=== PATIENT | female | born 1955 | race African-American/Black ===

== ENCOUNTER 2019-08-08 05:33 | Inpatient (IN) | payer OTHER ==
[2019-08-08 05:56] VITALS: BMI 36.5
--- NOTE | 2019-08-08 07:15 | PDOC ---
History of Present Illness - General Chief Complaint: Chest Pain Stated Complaint: CHEST PAIN Time Seen by Provider: 08/08/19 07:15 History Source: Patient Exam Limitations: No Limitations - History of Present Illness Initial Comments: 63-year-old female with past medical history of hypertension, hyperlipidemia, CAD s/p 2 stents (2014), CVA (05/2019), COPD, asthma, nicotine use, ESRD on HD ( //), CHF, diabetes presented to the emergency department for chest tightness for two days. She reported that her chest tightness is constant, associated with an increase in sputum, and a color change from clear to yellow or green. She reported a subjective fever a couple of days ago. She also complains of six days of loose watery diarrhea, and nausea and vomiting associated with generalized abdominal pain, worse in the LLQ. She reported she last vomited this morning. She reported she has not missed any dialysis prior to today, or any of her prescribed medications. She reported her dialysis appointment was for this morning at 5 AM, and she missed it because she was in the emergency department. She reported her weight has been a little bit lower than normal when she weighs herself everyday. Pt recently finished a course of Doxycyline. ROS General: denied fever, chills, generalized weakness. HEENT: denied sore throat, rhinorrhea, ear pain. Cardiovascular: denied chest pain, palpitations, syncope, diaphoresis. Respiratory: admitted to shortness of breath, cough, sputum production. denied hemoptysis. Gastrointestinal: admitted to abdominal pain, nausea, vomiting, diarrhea. denied constipation, blood in stool. Genitourinary: denied dysuria, increased urinary frequency, hematuria, urinary incontinence, flank pain. Back: denied back pain. Musculoskeletal: denied joint pain, muscle pain, joint swelling. Neurological: denied headache, dizziness, numbness, tingling, weakness. Integumentary: denied rash, laceration, abrasion. Hematologic/Lymphatic: denied bruising or bleeding. PE Constitutional: Well-nourished, Well-developed, appearing stated age. Obese. HEENT: head is normocephalic, atraumatic. EOMI. PERRLA. Neck: supple. Full ROM. Cardiovascular: regular heart rhythm. no murmurs. Respiratory: rhonchi bilaterally. crackles bilaterally. no stridor. speaking full sentences. tachypnea. Gastrointestinal: soft, flat. tenderness to LLQ and RUQ. normal bowel sounds. no rebound, guarding, masses. Extremities: peripheral pulses intact. 3+ pitting edema bilateral lower extremities. Neurological: CN 2-12 grossly intact. moves all four extremities. Psych: awake, alert, oriented x3. follows commands. answers questions appropriately. Past History - Past Medical History Allergies/Adverse Reactions: Allergies Allergy/AdvReac Type Severity Reaction Status Date / Time Penicillins Allergy Intermediate Hives Verified 08/08/19 06:01 Home Medications: Ambulatory Orders Albuterol Sulfate [Proair Respiclick] 2 puff IH QID PRN 08/08/19 Aspirin [Aspirin EC] 81 mg PO DAILY 08/08/19 Atorvastatin Ca [Lipitor] 80 mg PO HS 08/08/19 Budesonide/Formeterol Fumarate [SYMBICORT 80/4.5mcg -] 2 inh PO BID 08/08/19 Calcium Carbonate/Vitamin D3 [Calcium 600-D3 20Mcg(800 Unit)] 1 each PO DAILY Clopidogrel Bisulfate [Plavix -] 75 mg PO DAILY 08/08/19 Clotrimazole 30 ml TP DAILY 08/08/19 Cyanocobalamin [Vitamin B12 -] 100 mcg PO DAILY 08/08/19 Fluticasone Furoate [Children's Flonase Sensimist] 5.9 ml NS BID 08/08/19 Folic Acid 1 mg PO DAILY 08/08/19 Gabapentin 100 mg PO BID 08/08/19 Ipratropium/Albuterol Sulfate [Combivent Respimat Inhal [place]] 4 gm IH BID 08/08 Isosorbide Dinitrate [Isordil] 20 mg PO TID 08/08/19 Lisinopril 10 mg PO DAILY 08/08/19 Metoprolol Succinate 12.5 mg PO DAILY 08/08/19 Montelukast Sodium [Singulair] 10 mg PO DAILY 08/08/19 Mupirocin 1 gm TP BID 08/08/19 Nitroglycerin 0.4 mg SL DAILY 08/08/19 Sennosides [Senna] 17.2 mg PO HS 08/08/19 Sevelamer HCl 800 mg PO TID 08/08/19 - Immunization History Td Vaccination: Yes TDAP Vaccination: Yes Immunization Up to Date: Yes - Psycho Social/Smoking Cessation Hx Smoking History: Never smoked Have you smoked in the past 12 months: No Information on smoking cessation initiated: No Hx Alcohol Use: No Drug/Substance Use Hx: No *Physical Exam - Vital Signs Last Vital Signs Temp Pulse Resp BP Pulse Ox 99.2 F 120 H 20 112/79 100 08/08/19 05:44 08/08/19 06:31 08/08/19 06:31 08/08/19 06:31 08/08/19 06:31 Procedures - Central Line Central Line Lumen: triple Central Line Position: femoral (L) Anesthesia: 1% Lidocaine Amount of anesthesia (ccs): 5 Complications: none Post Central Line Insertion: sutured, good blood return Progress: Verbal consent was obtained, it was an emergent line and written consent was not obtained. It was in the best interest of the patient to have to procedure done as soon as possible. The Right IJ was attempted first, resistance was felt , likely from scarring from past procedures. We then decided the best access for her would be femoral and the Left Femoral was placed. - Bedside Ultrasound Bedside Ultrasound: Cardiac Remarks: Bedside POCUS cardiac US showed no pericardial effusion, globally decreased squeeze, no RV dilation, no septal bowing. Bedside POCUS IVC US showed plethoric IVC. Bedside POCUS RUQ showed thickened GB wall, with pericholecystic fluid, with GB stones. ---POCUS US Imaging was performed by me and Dr. Varghese, US Fellowship Trained EM Attending. ED Treatment Course - LABORATORY CBC & Chemistry Diagram: 08/08/19 06:40 08/08/19 06:40 Medical Decision Making - Medical Decision Making 63 year old female with above PMH presented to ED for chest tightness/ productive cough x2 days, as well as LLQ pain, N/V/D x6 days with recent antibiotic use. Initial Vital Signs Temp Pulse Resp BP Pulse Ox 99.2 F 75 20 92/56 L 100 08/08/19 05:44 08/08/19 05:44 08/08/19 05:44 08/08/19 05:44 08/08/19 05:44 ED Medications Discontinued Medications Generic Name Dose Route Start Last Admin Trade Name Freq PRN Reason Stop Dose Admin Al Hydroxide/Mg Hydroxide 30 ml 08/08/19 07:22 08/08/19 07:55 Mylanta Oral Suspension - PO 08/08/19 07:23 30 ml ONCE ONE Administration Albuterol/Ipratropium 3 amp 08/08/19 07:22 08/08/19 07:55 Duoneb - NEB 08/08/19 07:23 3 amp ONCE ONE Administration Famotidine/Sodium Chloride 20 mg in 50 mls @ 100 mls/hr 08/08/19 07:22 08:00 Pepcid 20 Mg Premixed Ivpb - IVPB 08/08/19 07:51 100 mls/hr ONCE ONE Administration Pt refused Zofran. CXR report: Name: [facility] DEPARTMENT OF RADIOLOGY Phys: Victoria Muro RESIDENT : 1955 Age: 63 Sex: F [facility] Acct: [id number] Loc: [facility] [address] [facility] Exam Date: 08/08/19 Status: [facility] [place] [id number] Unit Number: [id number] EXAM#: TYPE/EXAM: RESULT: [id number] RAD/CHEST X-RAY PORTABLE* Chest: Chest pain A single AP view of the chest reveals a large heart with fullness of the mara and congestive changes. There is no sign of an infiltrate. The angles are sharp. The soft tissues are prominent. There are some degenerative changes. Correlation recommended. Reported By: Doug Ruvalcaba MD 08/08/19 0658 Labs ordered: CBC, CMP, Mg, Phos, BNP, troponin, stool studies, blood cultures Imaging ordered: CT abdomen/pelvis EKG performed at 0741: rate 78, regular rhythm, left axis, normal intervals, QTc 465, no acute ST changes, 3 PVCs. 08/08/19 09:21 Laboratory Last Values WBC 10.0 K/mm3 (4.0-10.0) 08/08/19 06:40 RBC 3.80 M/mm3 (3.60-5.2) 08/08/19 06:40 Hgb 11.7 GM/dL (10.7-15.3) 08/08/19 06:40 Hct 37.1 % (32.4-45.2) 08/08/19 06:40 MCV 97.6 fl (80-96) H 08/08/19 06:40 MCH 30.7 pg (25.7-33.7) 08/08/19 06:40 MCHC 31.5 g/dl (32.0-36.0) L 08/08/19 06:40 RDW 15.9 % (11.6-15.6) H 08/08/19 06:40 MPV 9.3 fl (7.5-11.1) 08/08/19 06:40 Absolute Neuts (auto) 6.1 K/mm3 (1.5-8.0) 08/08/19 06:40 Neutrophils % 61.2 % (42.8-82.8) 08/08/19 06:40 Lymphocytes % 9.5 % (8-40) 08/08/19 06:40 Monocytes % 13.2 % (3.8-10.2) H 08/08/19 06:40 Eosinophils % 15.7 % (0-4.5) H 08/08/19 06:40 Basophils % 0.4 % (0-2.0) 08/08/19 06:40 Nucleated RBC % 0 % (0-0) 08/08/19 06:40 PT with INR 13.70 SEC (9.7-13.0) H 08/08/19 06:40 INR 1.16 (0.83-1.09) H 08/08/19 06:40 PTT (Actin FS) 35.9 SECONDS (25.2-36.5) 08/08/19 06:40 Sodium 139 mmol/L (136-145) 08/08/19 06:40 Potassium 4.1 mmol/L (3.5-5.1) 08/08/19 06:40 Chloride 101 mmol/L (98-107) 08/08/19 06:40 Carbon Dioxide 29 mmol/L (21-32) 08/08/19 06:40 Anion Gap 9 MMOL/L (8-16) 08/08/19 06:40 BUN 27.9 mg/dL (7-18) H 08/08/19 06:40 Creatinine 7.0 mg/dL (0.55-1.3) H 08/08/19 06:40 Est GFR (CKD-EPI)AfAm 6.70 08/08/19 06:40 Est GFR (CKD-EPI)NonAf 5.78 08/08/19 06:40 Random Glucose 109 mg/dL (74-106) H 08/08/19 06:40 Lactic Acid 2.4 mmol/L (0.4-2.0) H* 08/08/19 07:55 Calcium 8.3 mg/dL (8.5-10.1) L 08/08/19 06:40 Phosphorus 5.2 mg/dL (2.5-4.9) H 08/08/19 07:55 Magnesium 2.2 mg/dL (1.8-2.4) 08/08/19 07:55 Total Bilirubin 0.6 mg/dL (0.2-1) 08/08/19 06:40 AST 30 U/L (15-37) 08/08/19 06:40 ALT 14 U/L (13-61) 08/08/19 06:40 Alkaline Phosphatase 207 U/L (45-117) H 08/08/19 06:40 Troponin I < 0.02 ng/ml (0.00-0.05) 08/08/19 06:40 B-Natriuretic Peptide 75000.5 pg/ml (5-125) H 08/08/19 07:55 Total Protein 7.2 g/dl (6.4-8.2) 08/08/19 06:40 Albumin 2.9 g/dl (3.4-5.0) L 08/08/19 06:40 Pt is fluid overloaded. Needs dialysis today. Dr. Galvan paged. 08/08/19 11:06 Pt became hypotensive, required central line placement. See procedure note. A right IJ was attempted, but resistance was felt. The central line was placed in the left femoral vein under US guidance. ICU consulted. Dr. Galvan will arrange dialysis. Bedside POCUS RUQ showed thickened GB wall, with pericholecystic fluid, with GB stones. Clinically concerning for Cholecystitis. Medications ordered: Cipro and Flagyl, Levophed 08/08/19 11:33 Signout given to admitting team, pt to be under Dr. Ochoa's care. Pt to be transported to ICU. 08/08/19 11:56 Pt left ED to go to CT for Abdomen/Pelvis without contrast, the to be taken straight to ICU. 08/08/19 12:[address] Weir, who will consult. Discharge - Discharge Information Problems reviewed: Yes Clinical Impression/Diagnosis: Fluid overload, Cholecystitis, Hypotension Condition: Guarded - Admission Yes - Follow up/Referral - Patient Discharge Instructions - Post Discharge Activity
[2019-08-08] MEDS ORDERED: MAG HYDROX/AL HYDROX/SIMETH 30 ML UNIT-DOSE CUP PO ONE (07:22)
[2019-08-08] MEDS ORDERED: ONDANSETRON 4 MG/2 ML VIAL IVPUSH ONE (07:22)
[2019-08-08] MEDS ORDERED: FAMOTIDINE 20 MG/50 ML IVPB 20 MG/50 ML MG IVPB ONE ×2 (07:22→07:59)
[2019-08-08] MEDS ORDERED: ALBUTEROL SO4 2.5/IPRATROPIUM 0.5 INH SOL 3 ML VIAL.NEB. NEB ONE ×4 (07:22→09:19)
[2019-08-08] MEDS ORDERED: MAG HYDROX/AL HYDROX/SIMETH 30 ML UNIT-DOSE CUP ONE (07:58)
[2019-08-08 08:08] LABS: BASO % 0.4 % (0-2.0); EOS % 15.7 % (0-4.5); HEMATOCRIT 37.1 % (32.4-45.2); HEMOGLOBIN 11.7 GM/dL (10.7-15.3); LYMPH % 9.5 % (8-40); MCH 30.7 pg (25.7-33.7); MCHC 31.5 g/dl (32.0-36.0); MEAN CELL VOLUME 97.6 fl (80-96); MEAN PLT VOLUME 9.3 fl (7.5-11.1); MONO % 13.2 % (3.8-10.2); NEUT % 61.2 % (42.8-82.8); RDW 15.9 % (11.6-15.6)
[2019-08-08 08:32] LABS: INR 1.16 (0.83-1.09); PROTHROMBIN TIME (PATIENT) 13.7 SEC (9.7-13.0)
[2019-08-08 08:36] LABS: ACTIVATED PTT 35.9 SECONDS (25.2-36.5)
[2019-08-08 08:38] LABS: ALBUMIN 2.9 g/dl (3.4-5.0); ALK PHOS 207 U/L (45-117); ANION GAP 9 MMOL/L (8-16); BILIRUBIN,TOTAL 0.6 mg/dL (0.2-1); BLOOD UREA NITROGEN 27.9 mg/dL (7-18); CALCIUM 8.3 mg/dL (8.5-10.1); CHLORIDE 101 mmol/L (98-107); CO2 29 mmol/L (21-32); GLUCOSE,RANDOM 109 mg/dL (74-106); POTASSIUM 4.1 mmol/L (3.5-5.1); SGOT/AST 30 U/L (15-37); SGPT/ALT 14 U/L (13-61); SODIUM 139 mmol/L (136-145); TOT PROT 7.2 g/dl (6.4-8.2)
--- NOTE | 2019-08-08 08:41 | PDOC ---
Attending Attestation - Resident Resident Name: Precious Vagrhese - ED Attending Attestation I have performed the following: I have examined & evaluated the patient, The case was reviewed & discussed with the resident, I agree w/resident's findings & plan, Exceptions are as noted - HPI HPI: 08/08/19 08:51 42-bewf-wvu-year-old female history of end-stage renal disease dialysis Saturday, hypertension, diabetes, COPD here today complaining of cough and not feeling well. pt has been feeling sob, and c/o chest pain. call EMS today, felt too unwell to go to dialysis. on EMS arrival, pt was given 4 asa 82mg. stats she has had a cough. also c/o subjective fever and chills. no leg swelling. laboratory geneticist is Dr Ordoñez - Physicial Exam PE: 08/08/19 09:18 on exam pt awake alert lungs with diffuse crackles, rhonchorous breath sounds, occasional wheeze. normal effort. heart rrr no mrg abd soft mild llq ttp. ruq ttp. positive herman's signs. noted suprpubic c section scar. no palp hernia. no rebound no guarding. skin warm and dry. neuro alert oriented x 3. 08/08/19 12:16 - Medical Decision Making 08/08/19 09:19 63 yo F with esrd, ht dm copd dialysis here with c/o chest pain diarrhea, and cough. congestive lung exam plan duoneb, tylenol, will require dialysis this am. pt recently on abx, doxy, and now c/o loose watery stool. concerns for colitis, c diff. ct a/p ordered and pending. will call oncall nephrology to arrange for dialysis. 08/08/19 12:17 pt with worsening BP in ED. unable to give fluid resuscitation due to dialysis, poor contractility, and plethoric IVC. pt needs ionotropic support. focused ED us performed moderately decreased contractility, no pericardial effusion, plethoric IVC central line placed left femoral region, ( unable to thread wire Right IJ location due to presumed stenosis) levophed ordered and started. right upper quadrant ultrasond, pt with stones, wall thickening edema. positive sonographic herman's mildly dilated CBD for patients age. impression: cholecysitits. dr vigil consulted. pt upgraded to ICU for sepsis, cholecysitis, pulm congestion needs dialysis. ICU agreed. ct a/p evaluated to evaluate for colitis, en route to CT. pt pcn allergic, was ordered for cipro and flagyl. Critical Care Total Critical Care Time (in minutes): 60 Critical Care Statement: The care of this patient involved high complexity decision making to prevent further life threatening deterioration of the patient 's condition and/or to evaluate & treat vital organ system(s) failure or risk of failure. central line placed. treated abx for cholecysitis, transfereed to ICU. nephrology and surgery consulted.
[2019-08-08] MEDS ORDERED: ACETAMINOPHEN 1000 MG/100 ML VIAL (NON FORMULARY) IVPB ONE (08:54)
[2019-08-08 09:13] LABS: MAGNESIUM 2.2 mg/dL (1.8-2.4); N-TERMINAL BNP 29771.5 pg/ml (5-125); PHOSPHOROUS 5.2 mg/dL (2.5-4.9)
[2019-08-08] MEDS ORDERED: ACETAMINOPHEN INJECTION 100 ML IVPB ONE (09:18)
--- NOTE | 2019-08-08 10:16 | EKG ---
Test Reason : Blood Pressure : / mmHG Vent. Rate : 077 BPM Atrial Rate : 077 BPM P-R Int : 172 ms QRS Dur : 098 ms QT Int : 400 ms P-R-T Axes : 000 -21 104 degrees QTc Int : 452 ms SINUS RHYTHM WITH SINUS ARRHYTHMIA WITH FREQUENT PREMATURE VENTRICULAR COMPLEXES LOW VOLTAGE QRS SEPTAL INFARCT (CITED ON OR BEFORE 27-OCT-2008) ABNORMAL ECG WHEN COMPARED WITH ECG OF 29-OCT-2008 11:14, PREMATURE VENTRICULAR COMPLEXES ARE NOW PRESENT T WAVE INVERSION MORE EVIDENT IN LATERAL LEADS Confirmed by RENATA SALAS MD ([id number]) on 08/08/2019 10:16:28 AM Referred By: Confirmed By:RENATA SALAS MD
[2019-08-08] MEDS ORDERED: SODIUM CHLORIDE 250 ML IV PRN (10:22)
[2019-08-08] MEDS ORDERED: CIPROFLOXACIN 400 MG/D5W 400 MG/200 ML IVPB IVPB ONE (11:01)
[2019-08-08 11:22] LABS: LIPASE 249 U/L (73-393)
[2019-08-08] MEDS: NOREPINEPHRINE BITARTRATE 8,000 MCG in DEXTROSE 5%-WATER - 492 ML IV SCH (11:45)
[2019-08-08 11:56] LABS: PLATELET COUNT 190 K/MM3 (134-434)
[2019-08-08 11:58] LABS: VENOUS PC02 54.5 mmHg (38-52); VENOUS PH 7.33 (7.31-7.41); VENOUS PO2 < 49 mmHg (28-48)
--- NOTE | 2019-08-08 12:05 | HP ---
CHIEF COMPLAINT: chest pain, abdominal pain, diarrhea x 6 days PCP: HISTORY OF PRESENT ILLNESS: Pt is a 63 year old F with PMHx of HTN, HLD, CAD s/ p 2 stents (2014), CVA (05/2019), COPD, asthma, nicotine use, ESRD on HD (// ), CHF, DM (diet controlled) presenting for chest pain, abdominal pain and diarrhea. Pt reported having up to 5 daily episodes of loose stool with abdominal pain. Yesterday she vomited nbnb vomit with associated fever. Pt barely makes urine has been on dialysis since 2014. Pt does not use oxygen at home. Pt reports getting care from [facility] including dialysis TTHS, last dialysis sesion on . Pt however has been to both [facility] and [facility] Ed over the past week for the current complaint. She said she got chest Xrays done and received her usual medications. Pt reports ambulating without assistance, with dyspnea on exertion. Per chart she was on doxycycline recently. ED d/w with Dr Galvan about her overload, will see her for possible dialysis. Pt reports R sided pain, from prior rib fractures (identified in hospital during her diagnosis of stroke). While in the ED, pt became hypotensive to 74/47, necessitating a central line to start pressors. RIJ was attempted but L femoral line is now in place. 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, lives alone Smokin cigs per day has been smoking for 20 years Alcohol:Denies Drugs: Denies Allergies Penicillins Allergy (Intermediate, Verified 08/08/19 06:01) Hives HOME MEDICATIONS: Home Medications Medication Instructions Recorded Albuterol Sulfate [Proair 2 puff IH QID PRN 08/08/19 Respiclick] Aspirin [Aspirin EC] 81 mg PO DAILY 08/08/19 Atorvastatin Ca [Lipitor] 80 mg PO HS 08/08/19 Budesonide/Formeterol Fumarate 2 inh PO BID 08/08/19 [SYMBICORT 80/4.5mcg -] Calcium Carbonate/Vitamin D3 1 each PO DAILY 08/08/19 [Calcium 600-D3 20Mcg(800 Unit)] Clopidogrel Bisulfate [Plavix -] 75 mg PO DAILY 08/08/19 Clotrimazole 30 ml TP DAILY 08/08/19 Cyanocobalamin [Vitamin B12 -] 100 mcg PO DAILY 08/08/19 Fluticasone Furoate [Children's 5.9 ml NS BID 08/08/19 Flonase Sensimist] Folic Acid 1 mg PO DAILY 08/08/19 Gabapentin 100 mg PO BID 08/08/19 Ipratropium/Albuterol Sulfate 4 gm IH BID 08/08/19 [Combivent Respimat Inhal [place]] Isosorbide Dinitrate [Isordil] 20 mg PO TID 08/08/19 Lisinopril 10 mg PO DAILY 08/08/19 Metoprolol Succinate 12.5 mg PO DAILY 08/08/19 Montelukast Sodium [Singulair] 10 mg PO DAILY 08/08/19 Mupirocin 1 gm TP BID 08/08/19 Nitroglycerin 0.4 mg SL DAILY 08/08/19 Sennosides [Senna] 17.2 mg PO HS 08/08/19 Sevelamer HCl 800 mg PO TID 08/08/19 REVIEW OF SYSTEMS Except as in HPI PHYSICAL EXAMINATION Vital Signs - 24 hr 08/08/19 08/08/19 08/08/19 05:44 06:31 07:15 Temperature 99.2 F Pulse Rate 75 100 H Pulse Rate [ 120 H Apical] Respiratory 20 20 Rate Blood Pressure 92/56 L Blood Pressure 112/79 [Right Arm] O2 Sat by Pulse 100 100 91 L Oximetry (%) 08/08/19 08/08/19 08/08/19 07:21 09:10 09:13 Temperature 99.0 F 99.0 F Pulse Rate 84 Pulse Rate [ 96 H Apical] Respiratory 30 H Rate Blood Pressure Blood Pressure 97/59 L [Right Arm] O2 Sat by Pulse 99 100 Oximetry (%) 08/08/19 08/08/19 11:40 11:45 Temperature Pulse Rate 86 Pulse Rate [ 80 86 Apical] Respiratory 22 H 24 H Rate Blood Pressure 79/47 L Blood Pressure 79/47 L 95/63 [Right Arm] O2 Sat by Pulse 100 100 Oximetry (%) GENERAL: Initially somnolent but arousable, later awake, alert, and fully oriented, in no acute distress. Obese EYES: Pupils equal, round and reactive to light, extraocular movements intact, sclera anicteric, conjunctiva clear. No lid lag. EARS, NOSE, THROAT: Dry mucus membranes, edentulous. NECK: R bandage over neck LUNGS: Rhonchi, basal crackles b/l HEART: S1 and S2 without murmur, rub or gallop. ABDOMEN: Obese, generalized tenderness, Soft, MUSCULOSKELETAL: Tommy to move all extremities UPPER EXTREMITIES: healed rashes on hands b/l LOWER EXTREMITIES: b/l peripheral edema, no pitting with thickened dark skin. NEUROLOGICAL: Cranial nerves II-XII intact. Edentulous speech difficult to comprehend. Gait not observed CBC, BMP 08/08/19 14:50 08/08/19 14:50 . Laboratory Results - last 24 hr 08/08/19 08/08/19 08/08/19 06:40 06:40 06:40 WBC 10.0 RBC 3.80 Hgb 11.7 Hct 37.1 MCV 97.6 H MCH 30.7 MCHC 31.5 L RDW 15.9 H Plt Count 190 MPV 9.3 Absolute Neuts (auto) 6.1 Total Counted 100 Neutrophils % 61.2 Neutrophils % (Manual) 53.0 Band Neutrophils % 2.0 Lymphocytes % 9.5 Lymphocytes % (Manual) 16.0 Monocytes % 13.2 H Monocytes % (Manual) 16 H Eosinophils % 15.7 H Eosinophils % (Manual) 13.0 H Basophils % 0.4 Nucleated RBC % 0 Platelet Comment No clumping noted PT with INR 13.70 H INR 1.16 H PTT (Actin FS) 35.9 Anticoagulation Therapy Puncture Site Patient Temperature ABG pH ABG pCO2 at Pt Temp ABG pO2 at Pt Temp ABG HCO3 ABG O2 Sat (Measured) ABG O2 Content ABG Base Excess Thiago Test VBG pH POC VBG pCO2 POC VBG pO2 VBG HCO3 VBG O2 Sat (Narciso) VBG Base Excess Carboxyhemoglobin Methemoglobin O2 Delivery Device Oxygen Flow Rate Vent Mode Vent Rate Mechanical Rate PEEP Pressure Support Vent Sodium 139 Potassium 4.1 Chloride 101 Carbon Dioxide 29 Anion Gap 9 BUN 27.9 H Creatinine 7.0 H Est GFR (CKD-EPI)AfAm 6.70 Est GFR (CKD-EPI)NonAf 5.78 Random Glucose 109 H Lactic Acid Calcium 8.3 L Phosphorus Magnesium Total Bilirubin 0.6 AST 30 ALT 14 Alkaline Phosphatase 207 H Troponin I < 0.02 B-Natriuretic Peptide Total Protein 7.2 Albumin 2.9 L Lipase 249 08/08/19 08/08/19 08/08/19 07:55 07:55 10:45 WBC RBC Hgb Hct MCV MCH MCHC RDW Plt Count MPV Absolute Neuts (auto) Total Counted Neutrophils % Neutrophils % (Manual) Band Neutrophils % Lymphocytes % Lymphocytes % (Manual) Monocytes % Monocytes % (Manual) Eosinophils % Eosinophils % (Manual) Basophils % Nucleated RBC % Platelet Comment PT with INR INR PTT (Actin FS) Anticoagulation Therapy Cancelled Puncture Site Cancelled Patient Temperature Cancelled ABG pH Cancelled ABG pCO2 at Pt Temp Cancelled ABG pO2 at Pt Temp Cancelled ABG HCO3 Cancelled ABG O2 Sat (Measured) Cancelled ABG O2 Content Cancelled ABG Base Excess Cancelled Thiago Test Cancelled VBG pH POC VBG pCO2 POC VBG pO2 VBG HCO3 VBG O2 Sat (Narciso) VBG Base Excess Carboxyhemoglobin Cancelled Methemoglobin Cancelled O2 Delivery Device Cancelled Oxygen Flow Rate Cancelled Vent Mode Cancelled Vent Rate Cancelled Mechanical Rate Cancelled PEEP Cancelled Pressure Support Vent Cancelled Sodium Potassium Chloride Carbon Dioxide Anion Gap BUN Creatinine Est GFR (CKD-EPI)AfAm Est GFR (CKD-EPI)NonAf Random Glucose Lactic Acid 2.4 H* Calcium Phosphorus 5.2 H Magnesium 2.2 Total Bilirubin AST ALT Alkaline Phosphatase Troponin I B-Natriuretic Peptide 95166.5 H Total Protein Albumin Lipase Laboratory Tests 08/08/19 11:25 VBG pH 7.33 POC VBG pCO2 54.5 H POC VBG pO2 < 49 H VBG HCO3 28.1 VBG O2 Sat (Narciso) 73.6 VBG Base Excess 2.7 H Current Medications Albuterol/Ipratropium (Duoneb -) 1 amp NEB RTID [facility] Aspirin (Ecotrin -) 81 mg PO DAILY [facility] Budesonide/Formoterol Fumarate (Symbicort 80/4.5mcg -) 2 puff IH BID [facility] Clopidogrel Bisulfate (Plavix -) 75 mg PO DAILY [facility] Heparin Sodium (Porcine) (Heparin -) 5,000 unit SQ TID [facility] Norepinephrine Bitartrate 8, (000 mcg/ Dextrose) 500 mls @ 18.75 mls/hr IV TITR [facility]; Protocol Last Admin: 08/08/19 11:45 Dose: 5 mcg/min, 18.75 mls/hr Sodium Chloride (Normal Saline -) 250 mls @ 3,000 mls/hr IV PRN PRN PRN Reason: Hypotension during Dialysis Stop: 08/09/19 10:22 Montelukast Sodium (Singulair -) 10 mg PO HS [facility] Nystatin (Mycostatin Cream -) 1 applic TP BID [facility] Vancomycin HCl (Vancomycin Oral Solution) 250 mg PO Q6HPO [facility] Last Admin: 08/08/19 18:20 Dose: 250 mg Ambulatory Orders Albuterol Sulfate [Proair Respiclick] 2 puff IH QID PRN 08/08/19 Aspirin [Aspirin EC] 81 mg PO DAILY 08/08/19 Atorvastatin Ca [Lipitor] 80 mg PO HS 08/08/19 Budesonide/Formeterol Fumarate [SYMBICORT 80/4.5mcg -] 2 inh PO BID 08/08/19 Calcium Carbonate/Vitamin D3 [Calcium 600-D3 20Mcg(800 Unit)] 1 each PO DAILY Clopidogrel Bisulfate [Plavix -] 75 mg PO DAILY 08/08/19 Clotrimazole 30 ml TP DAILY 08/08/19 Cyanocobalamin [Vitamin B12 -] 100 mcg PO DAILY 08/08/19 Fluticasone Furoate [Children's Flonase Sensimist] 5.9 ml NS BID 08/08/19 Folic Acid 1 mg PO DAILY 08/08/19 Gabapentin 100 mg PO BID 08/08/19 Ipratropium/Albuterol Sulfate [Combivent Respimat Inhal [place]] 4 gm IH BID 08/08 Isosorbide Dinitrate [Isordil] 20 mg PO TID 08/08/19 Lisinopril 10 mg PO DAILY 08/08/19 Metoprolol Succinate 12.5 mg PO DAILY 08/08/19 Montelukast Sodium [Singulair] 10 mg PO DAILY 08/08/19 Mupirocin 1 gm TP BID 08/08/19 Nitroglycerin 0.4 mg SL DAILY 08/08/19 Sennosides [Senna] 17.2 mg PO HS 08/08/19 Sevelamer HCl 800 mg PO TID 08/08/19 ASSESSMENT/PLAN: Pt is a 63 year old F with PMHx of HTN, HLD, CAD s/p 2 stents (2014), CVA (2018), COPD, asthma, nicotine use, ESRD on HD (), CHF, DM (diet controlled ) presenting for chest pain, abdominal pain and diarrhea. #Acute Pulmonary edema In setting of ESRD with missed dialysis, and possible CHF BNP elevated to 20,000s Pt for dialysis today, Dr Galvan on board Cont supplemental o2 #Acute hypercapnic respiratory failure abg pending Pt reports not being on home O2 Cont supplemental O2 as needed #Septic shock likely secondary to cdiff LA, hypotension on vasopressors Trend lactic acid klevel Received cipro/flagyl inED Pt allergic to pen (hives)- 1g aztreonam stat Will consider contact isolation Stool for Cdiff, o&P, stool cx UA not available- pt doesn't make urine #Chest pain R/O ACS Atypical chest pain, persisting for 1 week with no clear FIOR/TWI Possibly in setting of hypotension Initial trop neg, will trend Pending ECHO EKG- PVCs and 1st degree block, chest Cards on board- Dr Tinoco #Abdominal pain R/O acute cholecystitis CTAP done US abd pending POC US possible cholecystitis Sx on board #HTN- Hold BP meds HLD- No home statin noted, still pending med rec in am, unable to reach preferred pharmacy in [facility] CAD s/p 2 stents (2014), Hold metoprolol, NGs CVA (05/2019) Will hold BB, cont plavix, ASA COPD/asthma- Cont nebs nicotine use- does not need a patch ESRD on HD ()- dialyisis today per Dr galvan CHF- ECHO pending DM- diet controlled will put in BGMs Pt with medication list from [facility], unable to reach pharmacy at [facility] in [facility] to confirm Will hold metoprolol, isosorbide, NG and lisinopril Will cont ASA, plavix, and inhalers May need contact with primary care doctor- She uses [facility] during the week Hep sq NPO till after abd US Full code Visit type - Emergency Visit Emergency Visit: Yes ED Registration Date: 08/08/19 Care time: The patient presented to the Emergency Department on the above date and was hospitalized for further evaluation of their emergent condition. - New Patient This patient is new to me today: Yes Date on this admission: 08/08/19 - Critical Care Critical Care patient: Yes Total Critical Care Time (in minutes): 40 Critical Care Statement: The care of this patient involved high complexity decision making to prevent further life threatening deterioration of the patient 's condition and/or to evaluate & treat vital organ system(s) failure or risk of failure. ATTENDING PHYSICIAN STATEMENT I saw and evaluated the patient. I reviewed the resident's note and discussed the case with the resident. I agree with the resident's findings and plan as documented. SUBJECTIVE: OBJECTIVE: ASSESSMENT AND PLAN:
--- NOTE | 2019-08-08 13:56 | CONSULT ---
Consult Consult Specialty:: PULM/CCM Referred by:: Dr. Colette Ochoa Reason for Consultation:: Sepsis - History of Present Illness Chief Complaint: CP History of Present Illness: Ms. Perales is a 63 y/o woman w/ HTN, HL, CAD s/p 2 stents (2014), CVA (05/2019), COPD, asthma, nicotine use, ESRD on HD (//), CHF, and diabetes. The pt presents to the emergency department today for chest tightness X 2 days. Pt reported that her chest tightness is constant, associated with an increase in sputum, and a color change from clear to yellow or green. Pt endorses a subjective fever a couple of days ago. She also complains of six days of loose watery diarrhea, and nausea and vomiting associated with generalized abdominal pain, worse in the LLQ. She reported she last vomited this morning. She reported she has not missed any dialysis prior to today, or any of her prescribed medications. She reported her dialysis appointment was for this morning at 5 AM, and she missed it because she was in the emergency department. Of note, pt recently finished a course of Doxycyline for cough/URI like symptoms. In ED pt notable for BNP > 29,000 & CXR c/w V/O. The pt is admitted to the ICU now for SOB, Hypotension, HAP, possible GI infection, possible cholecystitis, in the complex medical patient. - History Source History Provided By: Patient, Medical Record Limitations to Obtaining History: Clinical Condition - Past Medical History Cardio/Vascular: Yes: CAD, CHF, HTN, GA Pulmonary: Yes: COPD Renal/: Yes: Renal Failure, Hemodialysis Heme/Onc: Yes: Anemia Endocrine: Yes: Diabetes Mellitus - Alcohol/Substance Use Hx Alcohol Use: No - Smoking History Smoking history: Current every day smoker Have you smoked in the past 12 months: Yes Aproximately how many cigarettes per day: 2 Home Medications - Allergies Allergies/Adverse Reactions: Allergies Allergy/AdvReac Type Severity Reaction Status Date / Time Penicillins Allergy Intermediate Hives Verified 08/08/19 06:01 - Home Medications Home Medications: Ambulatory Orders Albuterol Sulfate [Proair Respiclick] 2 puff IH QID PRN 08/08/19 Aspirin [Aspirin EC] 81 mg PO DAILY 08/08/19 Atorvastatin Ca [Lipitor] 80 mg PO HS 08/08/19 Budesonide/Formeterol Fumarate [SYMBICORT 80/4.5mcg -] 2 inh PO BID 08/08/19 Calcium Carbonate/Vitamin D3 [Calcium 600-D3 20Mcg(800 Unit)] 1 each PO DAILY Clopidogrel Bisulfate [Plavix -] 75 mg PO DAILY 08/08/19 Clotrimazole 30 ml TP DAILY 08/08/19 Cyanocobalamin [Vitamin B12 -] 100 mcg PO DAILY 08/08/19 Fluticasone Furoate [Children's Flonase Sensimist] 5.9 ml NS BID 08/08/19 Folic Acid 1 mg PO DAILY 08/08/19 Gabapentin 100 mg PO BID 08/08/19 Ipratropium/Albuterol Sulfate [Combivent Respimat Inhal [place]] 4 gm IH BID 08/08 Isosorbide Dinitrate [Isordil] 20 mg PO TID 08/08/19 Lisinopril 10 mg PO DAILY 08/08/19 Metoprolol Succinate 12.5 mg PO DAILY 08/08/19 Montelukast Sodium [Singulair] 10 mg PO DAILY 08/08/19 Mupirocin 1 gm TP BID 08/08/19 Nitroglycerin 0.4 mg SL DAILY 08/08/19 Sennosides [Senna] 17.2 mg PO HS 08/08/19 Sevelamer HCl 800 mg PO TID 08/08/19 Family Medical History Family History: Unremarkable Review of Systems - Review of Systems Constitutional: reports: Fever Eyes: reports: No Symptoms HENT: reports: No Symptoms Neck: reports: No Symptoms Cardiovascular: reports: Chest Pain, Shortness of Breath Respiratory: reports: SOB Gastrointestinal: reports: Abdominal Pain, Diarrhea Genitourinary: reports: No Symptoms Breasts: reports: No Symptoms Reported Musculoskeletal: reports: No Symptoms Integumentary: reports: No Symptoms Neurological: reports: No Symptoms Endocrine: reports: Other (Poor Apetite) Hematology/Lymphatic: reports: No Symptoms Psychiatric: reports: No Symptoms Pain Intensity: 10 Physical Exam Vital Signs: Vital Signs Temperature 97.7 F 08/08/19 12:36 Pulse Rate 99 H 08/08/19 12:36 Respiratory Rate 20 08/08/19 12:36 Blood Pressure 105/59 L 08/08/19 12:36 O2 Sat by Pulse Oximetry (%) 100 08/08/19 12:36 Intake & Output 08/05/19 08/06/19 08/07/19 08/08/19 23:59 23:59 23:59 23:59 Intake Total 200 Balance 200 Weight 84.822 kg Constitutional: Yes: Well Nourished, No Distress, Calm, Obese Eyes: Yes: WNL, Conjunctiva Clear, PERRL HENT: Yes: WNL, Atraumatic, Normocephalic Neck: Yes: WNL, Supple Cardiovascular: Yes: WNL, Pulse Irregular, JVD Respiratory: Yes: Accessory Muscle Use, Diminished, Wheezes Gastrointestinal: Yes: Abdomen, Obese, Hypoactive Bowel Sounds ...Rectal Exam: Yes: Deferred Renal/: Yes: Anuria Breast(s): Yes: WNL Musculoskeletal: Yes: WNL Extremities: Yes: WNL, Other (L UE Firtula,L Groin TLC From ED.) Edema: Yes Edema: LUE: Trace, RUE: Trace, LLE: Trace, RLE: Trace Peripheral Pulses WNL: Yes Integumentary: Yes: WNL Neurological: Yes: WNL, Alert, Oriented ...Motor Strength: WNL Psychiatric: Yes: WNL, Alert, Oriented Labs: CBC, BMP 08/08/19 06:40 08/08/19 06:40 INR, PTT INR 1.21 (0.83-1.09) H 08/08/19 14:50 Troponin, BNP 08/08/19 08/08/19 08/08/19 06:40 07:55 14:50 Troponin I < 0.02 < 0.02 B-Natriuretic Peptide 82545.5 H Imaging - Results Chest X-ray: Image Reviewed (08/08: A single AP view of the chest reveals a large heart with fullness of the mara and congestive changes. There is no sign of an infiltrate. The angles are sharp. The soft tissues are prominent. There are some degenerative changes. Correlation recommended.) Cat Scan: Report Reviewed (CTAP 08/08: Cardiomegaly. Mild bibasal atelectatic changes. Tiny gallstones without CT evidence of acute cholecystitis. Bilateral renal cysts. Inferior vena cava filter in satisfactory position. Diverticulosis coli mainly in the sigmoid colon without evidence of acute diverticulitis. Vascular calcifications along anterior margin of the junction of the pancreatic body and tail with mild lobulation of its contour. Correlation with contrast-enhanced MRI of the pancreas is needed to rule out any underlying mass lesion.) EKG: Image Reviewed (08/08: ABNORMAL EKGRSR @ 78 w/ frequent unifocal PVCs, pt is qu'ed out in V1 & V2 c/f septal infarct (But age unknown), there is T-Wave flattening in the lateral leads, QTc = 465ms) Problem List - Problems (1) ESRD (end stage renal disease) on dialysis Code(s): N18.6 - END STAGE RENAL DISEASE; Z99.2 - DEPENDENCE ON RENAL DIALYSIS (2) Fluid overload Code(s): E87.70 - FLUID OVERLOAD, UNSPECIFIED (3) Hypotension Code(s): I95.9 - HYPOTENSION, UNSPECIFIED Assessment/Plan ASSESS: -COPD -HTN -HL -CHF -ESRD ON HD TTS -DM -CVA -GA (in 2K15) w/ stents PLAN: -Supp FiO2 for an SpO2 > 92% -Nebs -STAT HD -Nocturnal Bi-Pap -Hold all anti-HTN meds for now -Brizuela Clxr including Stool -Check for C-Diff -Cover for HAP as well as GI bugs inculding C-Diff Tx -Abd US (r/o ramon) -Check TTE -Trend Trop -Cont ASA & Plavix -CARDS -CVC -Press prn -FSs -Insulin prn -Normal transfusion thresholds -Transfer to Floor in the [facility] ICU PULM/CCM [id number] Medical Decision Making - Critical Care Time Total Critical Care Time (minutes): 38 Critical Care Statement: The care of this patient involved high complexity decision making to prevent further life threatening deterioration of the patient 's condition and/or to evaluate & treat vital organ system(s) failure or risk of failure.
--- NOTE | 2019-08-08 14:15 | PN ---
Teaching Attending Note Name of Resident: Jennifer Beltrán ATTENDING PHYSICIAN STATEMENT I saw and evaluated the patient. I reviewed the resident's note and discussed the case with the resident. I agree with the resident's findings and plan as documented. SUBJECTIVE: Cc: chest pain, cough, diarrhea, subjective fevers HPI: 63 y/o lady with h/o ESRD on HD TTS, HTN, HLP, CVA, OR in 2015, s/p stents , CVA, COPd, CHF, DM, and other medical problems who presented with SOB , CP, diarrhea and fevers history is somewhat difficult to obtain but she stated she had chest pressure fro past 2 days , intermittent , all over anterior chest wall, lasts for min to hours. she has it now but less, started last night and did not resolve. she feels SOB , she did not miss HD in past week, . she was due this am but she was in ER. she reprots productive cough of small amount of yellow sputum x 2 months. she smokes. she has generalized abd pain and diarrhea x 6 days . watery non bloody stool. was on Abx doxycyclin 2 weeks ago for a cold. she reprots subjective fevers at home. In Er, BP dropped to 74 /43 so they started levophed. at the time levo was started her SBP was 95 already. she feels better now. she is in ICU. she lives in a assisted in [place]. she is supposed to be on O2 but she does not have it. OBJECTIVE: NAD, awake, alert, cooperative . MMM. short neck , no JVD poor dentition . NC on . NL oropharynx CV: regularly irreg , no MRG Lungs: course crackles on both lung faust Abd: generalized tenderness in all quadrants. no rebound , no guarding. neg Murphpy's. Ext : 1+ edema on LE . fungal infection among toes on both sides L . r ASSESSMENT AND PLAN: 63 y/o lady with h/o ESRD on HD TTS, HTN, HLP, CVA, OR in 2015, s/p stents, CVA , COPd, CHF, DM, and other medical problems who presented with SOB , CP, diarrhea and fevers. she developed hypotension in ER and was found to have fluid overload . 1- Pulmonary edema , due to acute heart failure ( ? type), and ESRD. can't r/ o ACS as a trigger given her CP. doubt PNA. - HD at 3:30 today - cont O2 at 2 L as needed . keep sats > 88% - r/o ACS - will obtain Echo 2- CP: not sure of etiology. sounds atypical but patient is high risk. - EKG reviewed. x 2. trop neg x 1 - repeat trop - echo - tele : with PVCs and runs of PVCs. -case d/w Dr. Charles 3- Abd pain and diarrhea: need to r/o c diff ( was on Abx 2 weeks ago). also r/ o other infectious etiology - CT scan reviewed. image and report. - send stool cx and c diff - start empiric po vanco, will dc if test is neg - doubt acute cholecystitis given generalized tenderness, neg Solis, CT scan finsings of nl gall bladder wall and no pericolecystic fluid. - will obtain a formal US of the RUQ. - received flagyl in ER. cipro was not given . will give a dose of aztreonam pending US - dr vigil was called form ER 4- Hypotension : not clear of etiology but could be due to volume depletion in setting of diarrhea. r/o sepsis, of course will r/o ACS. - on levophed now at 5. will taper off - echo . trops, card. blood cx 5- H/o HTN: hold off imdur , lisinopril, and BB 6- H/o CAD, CVA: cont ASa and plavix 7- ESRD: as above. cont sevelamer. ICU admission Critical Care Total Critical Care Time (in minutes): 40 Critical Care Statement: The care of this patient involved high complexity decision making to prevent further life threatening deterioration of the patient 's condition and/or to evaluate & treat vital organ system(s) failure or risk of failure.
[2019-08-08] MEDS ORDERED: AZTREONAM 1 GM VIAL (RESTRICTED TO ID) IVPB SCH (14:45)
[2019-08-08] MEDS ORDERED: AZTREONAM 1 GM VIAL (RESTRICTED TO ID) IVPB ONE (14:49)
[2019-08-08 15:19] LABS: BASO % 0.5 % (0-2.0); EOS % 20.7 % (0-4.5); HEMATOCRIT 37.4 % (32.4-45.2); HEMOGLOBIN 11.5 GM/dL (10.7-15.3); LYMPH % 10.5 % (8-40); MCHC 30.6 g/dl (32.0-36.0); MEAN CELL VOLUME 97.8 fl (80-96); MEAN PLT VOLUME 8.6 fl (7.5-11.1); MONO % 13.3 % (3.8-10.2); PLATELET COUNT 224 K/MM3 (134-434); RBC 3.82 M/mm3 (3.60-5.2); RDW 16.3 % (11.6-15.6)
[2019-08-08 15:31] LABS: INR 1.21 (0.83-1.09); PROTHROMBIN TIME (PATIENT) 14.3 SEC (9.7-13.0)
[2019-08-08 15:34] LABS: ACTIVATED PTT 38.3 SECONDS (25.2-36.5)
[2019-08-08 15:48] LABS: ALBUMIN 2.8 g/dl (3.4-5.0); BILIRUBIN,TOTAL 0.5 mg/dL (0.2-1); CALCIUM 8.4 mg/dL (8.5-10.1); CREATININE 7.3 mg/dL (0.55-1.3); POTASSIUM 3.9 mmol/L (3.5-5.1)
[2019-08-08 15:57] LABS: PLATELET ESTIMATE ADEQUATE
--- NOTE | 2019-08-08 16:43 | CON.CARD ---
Consult Consult Specialty:: cardiology - History of Present Illness Chief Complaint: Pt A&O; no chest pain or dyspnea preasntly; denies dizziness or palpitations. History of Present Illness: Ms. Perales is a 84-yulm-gsy-year-old black female with PM history of end-stage renal disease-->hemodialysis Saturday, hypertension, diabetes, COPD/bronchial asthma, obesity, sedentary lifestyle, here today complaining of cough and not feeling well. pt has been feeling sob, and c/o chest pain. call EMS today, felt too unwell to go to dialysis. on EMS arrival, pt was given 4 asa 81mg. States she has had a cough; also c/o subjective fever and chills. no leg swelling. Pt says she has fainted "many times" over the years, including at least 3 times this year; she says in February, she fainted and fell off the bed, breaking some ribs. Pt presently lives in a group home; transport is provided her to go to hemodialysis (last dialysis was ). - History Source History Provided By: Patient, Medical Record Limitations to Obtaining History: Poor Historian - Past Medical History Cardio/Vascular: Yes: CHF (diastolic), HTN, Hyperlipdemia Pulmonary: Yes: Asthma, COPD, Sleep Apnea Reproductive: Yes: Postmenopausal ...: No - Alcohol/Substance Use Hx Alcohol Use: No - Smoking History Smoking history: Current every day smoker Have you smoked in the past 12 months: Yes Aproximately how many cigarettes per day: 2 Home Medications - Allergies Allergies/Adverse Reactions: Allergies Allergy/AdvReac Type Severity Reaction Status Date / Time Penicillins Allergy Intermediate Hives Verified 08/08/19 06:01 - Home Medications Home Medications: Ambulatory Orders Albuterol Sulfate [Proair Respiclick] 2 puff IH QID PRN 08/08/19 Aspirin [Aspirin EC] 81 mg PO DAILY 08/08/19 Atorvastatin Ca [Lipitor] 80 mg PO HS 08/08/19 Budesonide/Formeterol Fumarate [SYMBICORT 80/4.5mcg -] 2 inh PO BID 08/08/19 Calcium Carbonate/Vitamin D3 [Calcium 600-D3 20Mcg(800 Unit)] 1 each PO DAILY Clopidogrel Bisulfate [Plavix -] 75 mg PO DAILY 08/08/19 Clotrimazole 30 ml TP DAILY 08/08/19 Cyanocobalamin [Vitamin B12 -] 100 mcg PO DAILY 08/08/19 Fluticasone Furoate [Children's Flonase Sensimist] 5.9 ml NS BID 08/08/19 Folic Acid 1 mg PO DAILY 08/08/19 Gabapentin 100 mg PO BID 08/08/19 Ipratropium/Albuterol Sulfate [Combivent Respimat Inhal [place]] 4 gm IH BID 08/08 Isosorbide Dinitrate [Isordil] 20 mg PO TID 08/08/19 Lisinopril 10 mg PO DAILY 08/08/19 Metoprolol Succinate 12.5 mg PO DAILY 08/08/19 Montelukast Sodium [Singulair] 10 mg PO DAILY 08/08/19 Mupirocin 1 gm TP BID 08/08/19 Nitroglycerin 0.4 mg SL DAILY 08/08/19 Sennosides [Senna] 17.2 mg PO HS 08/08/19 Sevelamer HCl 800 mg PO TID 08/08/19 Vital Signs: Vital Signs Temperature 98.1 F 08/08/19 15:35 Pulse Rate 76 08/08/19 16:10 Respiratory Rate 18 08/08/19 16:10 Blood Pressure 114/52 L 08/08/19 16:10 O2 Sat by Pulse Oximetry (%) 100 08/08/19 12:36 - Other Data Labs, Other Data: CBC, BMP 08/08/19 14:50 08/08/19 14:50 INR, PTT INR 1.21 (0.83-1.09) H 08/08/19 14:50 Troponin, BNP 08/08/19 08/08/19 08/08/19 06:40 07:55 14:50 Troponin I < 0.02 < 0.02 B-Natriuretic Peptide 86974.5 H Troponin, BNP 08/08/19 08/08/19 08/08/19 06:40 07:55 14:50 Troponin I < 0.02 < 0.02 B-Natriuretic Peptide 74257.5 H Problem List - Problems (1) Sleep apnea Assessment/Plan: sleep studies, if not already done. 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 Code(s): N18.6 - END STAGE RENAL DISEASE; Z99.2 - DEPENDENCE ON RENAL DIALYSIS (5) Cholelithiasis Assessment/Plan: US: stones without evidence of acute cholecystitis. f/u workup Code(s): K80.20 - CALCULUS OF GALLBLADDER W/O CHOLECYSTITIS W/O OBSTRUCTION (6) Acute on chronic diastolic (congestive) heart failure Assessment/Plan: +JVD; wheezing; congestive changes on CXR TNI < 0.02; f/u serially. On norepinephrine for low BP. For hemodialysis. Code(s): I50.33 - ACUTE ON CHRONIC DIASTOLIC (CONGESTIVE) HEART FAILURE (7) Cardiac arrhythmia Assessment/Plan: EKG: sinus rhythm with sinus arrhythmia; frequent PVCs, with runs of slow wide- complex beats. No chest verma. F/u on telemetry: for hemodialysis. Taper off norepinephrine as BP improves. Code(s): I49.9 - CARDIAC ARRHYTHMIA, UNSPECIFIED Assessment/Plan CCU time spent: 75 minutes.
[2019-08-08] MEDS ORDERED: ALBUTEROL SO4 0.083% IH SOL 2.5 MG/3 ML VIAL.NEB. NEB STA (16:55)
--- NOTE | 2019-08-08 17:37 | CONSULT ---
Consult Consult Specialty:: Nephrology Reason for Consultation:: ESRD - History of Present Illness Chief Complaint: shortness of breath History of Present Illness: Pt is a 63 year old female with pmhx of htn, hld, cad, cva, copds, asthma, and esrd who presents to the ER with shortness of breath and abdominal pain. She is due for HD today. She complains of shortness of breath. She also complains of lower ext edema. She denies chest pain. She follows with Dr Cyr. She denies fevers or chills. She says that she is compliance ith her HD schedule. She denies vomiting or diarrhea. - History Source History Provided By: Patient, Medical Record - Past Medical History Cardio/Vascular: Yes: CAD, CHF, HTN, [place] Pulmonary: Yes: COPD Renal/: Yes: Renal Failure, Hemodialysis Endocrine: Yes: Diabetes Mellitus - Alcohol/Substance Use Hx Alcohol Use: No - Smoking History Smoking history: Current every day smoker Have you smoked in the past 12 months: Yes Aproximately how many cigarettes per day: 2 Home Medications - Allergies Allergies/Adverse Reactions: Allergies Allergy/AdvReac Type Severity Reaction Status Date / Time Penicillins Allergy Intermediate Hives Verified 08/08/19 06:01 - Home Medications Home Medications: Ambulatory Orders Albuterol Sulfate [Proair Respiclick] 2 puff IH QID PRN 08/08/19 Aspirin [Aspirin EC] 81 mg PO DAILY 08/08/19 Atorvastatin Ca [Lipitor] 80 mg PO HS 08/08/19 Budesonide/Formeterol Fumarate [SYMBICORT 80/4.5mcg -] 2 inh PO BID 08/08/19 Calcium Carbonate/Vitamin D3 [Calcium 600-D3 20Mcg(800 Unit)] 1 each PO DAILY Clopidogrel Bisulfate [Plavix -] 75 mg PO DAILY 08/08/19 Clotrimazole 30 ml TP DAILY 08/08/19 Cyanocobalamin [Vitamin B12 -] 100 mcg PO DAILY 08/08/19 Fluticasone Furoate [Children's Flonase Sensimist] 5.9 ml NS BID 08/08/19 Folic Acid 1 mg PO DAILY 08/08/19 Gabapentin 100 mg PO BID 08/08/19 Ipratropium/Albuterol Sulfate [Combivent Respimat Inhal [place]] 4 gm IH BID 08/08 Isosorbide Dinitrate [Isordil] 20 mg PO TID 08/08/19 Lisinopril 10 mg PO DAILY 08/08/19 Metoprolol Succinate 12.5 mg PO DAILY 08/08/19 Montelukast Sodium [Singulair] 10 mg PO DAILY 08/08/19 Mupirocin 1 gm TP BID 08/08/19 Nitroglycerin 0.4 mg SL DAILY 08/08/19 Sennosides [Senna] 17.2 mg PO HS 08/08/19 Sevelamer HCl 800 mg PO TID 08/08/19 Family Medical History Family History: Denies Review of Systems - Review of Systems Constitutional: reports: Malaise Eyes: reports: No Symptoms HENT: reports: No Symptoms Neck: reports: No Symptoms Cardiovascular: reports: Edema, Shortness of Breath Respiratory: reports: SOB Gastrointestinal: reports: Abdominal Pain Genitourinary: reports: No Symptoms Integumentary: reports: No Symptoms Neurological: reports: No Symptoms Endocrine: reports: No Symptoms Hematology/Lymphatic: reports: No Symptoms Psychiatric: reports: No Symptoms Physical Exam Vital Signs: Vital Signs Temperature 98.1 F 08/08/19 15:35 Pulse Rate 67 08/08/19 17:10 Respiratory Rate 22 H 08/08/19 17:10 Blood Pressure 95/51 L 08/08/19 17:10 O2 Sat by Pulse Oximetry (%) 100 08/08/19 12:36 Constitutional: Yes: Calm Eyes: Yes: Conjunctiva Clear HENT: Yes: Atraumatic Neck: Yes: Supple Cardiovascular: Yes: S1, S2 Respiratory: Yes: On Nasal O2, Rhonchi Gastrointestinal: Yes: Normal Bowel Sounds, Soft Renal/: Yes: WNL Edema: Yes Edema: LLE: 1+, RLE: 1+ Neurological: Yes: Oriented Psychiatric: Yes: Oriented Labs: CBC, BMP 08/08/19 14:50 08/08/19 14:50 Imaging - Results Chest X-ray: Report Reviewed Problem List - Problems (1) ESRD (end stage renal disease) on dialysis Code(s): N18.6 - END STAGE RENAL DISEASE; Z99.2 - DEPENDENCE ON RENAL DIALYSIS (2) Fluid overload Code(s): E87.70 - FLUID OVERLOAD, UNSPECIFIED Assessment/Plan Current Medications Generic Name Dose Route Start Last Admin Trade Name Freq PRN Reason Stop Dose Admin Albuterol/Ipratropium 1 amp 08/08/19 20:00 Duoneb - NEB RTID [facility] Aspirin 81 mg 08/09/19 10:00 Ecotrin - PO DAILY [facility] Budesonide/Formoterol Fumarate 2 puff 08/08/19 22:00 Symbicort 80/4.5mcg - IH BID [facility] Clopidogrel Bisulfate 75 mg 08/09/19 10:00 Plavix - PO DAILY [facility] Heparin Sodium (Porcine) 5,000 unit 08/08/19 22:00 Heparin - SQ TID [facility] Norepinephrine Bitartrate 8, 500 mls @ 18.75 mls/hr 08/08/19 09:45 08/08/19 11:45 000 mcg/ Dextrose IV 5 mcg/min TITR SHILPA 18.75 mls/hr Administration Protocol 5 MCG/MIN Sodium Chloride 250 mls @ 3,000 mls/hr 08/08/19 10:22 Normal Saline - IV 08/09/19 10:22 PRN PRN Hypotension during Dialysis Montelukast Sodium 10 mg 08/09/19 10:00 Singulair - PO HS SHILPA Nystatin 1 applic 08/08/19 22:00 Mycostatin Cream - TP BID [facility] Vancomycin HCl 250 mg 08/08/19 18:00 Vancomycin Oral Solution PO Q6HPO [facility] Impression 1. esrd 2. fluid overload 3. hypotension 4. abd pain 5. copd 6. nicotine use 7. cad 8. cva Plan - will arrange for HD at bedside today - admit to ICU - renal diet when eating - monitor pulse ox - potassium stable
[2019-08-08] MEDS: VANCOMYCIN 250 MG/5 ML ORAL SOLUTION PO SCH (18:20)
[2019-08-08 19:41] LABS: LIPASE 144 U/L (73-393)
[2019-08-08] MEDS: ALBUTEROL SO4 2.5/IPRATROPIUM 0.5 INH SOL 3 ML VIAL.NEB. NEB SCH (20:44)
[2019-08-08] MEDS: HEPARIN NA (PORCINE) 5,000 UNITS/ML 1ML VIAL SQ SCH (21:44)
[2019-08-08] MEDS: NYSTATIN 100,000 UNIT/GM TOPICAL CREAM 15 GM TUBE TP SCH (21:44)
[2019-08-08] MEDS: BUDESONIDE/FORMETEROL FUMARATE 80/4.5 mcg INHALER IH SCH (21:45)
[2019-08-09] MEDS: VANCOMYCIN 250 MG/5 ML ORAL SOLUTION PO SCH ×2 (00:21→06:38)
[2019-08-09] MEDS ORDERED: AZTREONAM 1 GM VIAL (RESTRICTED TO ID) IVPB SCH ×3 (04:15→14:00)
[2019-08-09] MEDS: HEPARIN NA (PORCINE) 5,000 UNITS/ML 1ML VIAL SQ SCH (05:47)
[2019-08-09 06:33] LABS: HEMATOCRIT 36.4 % (32.4-45.2); HEMOGLOBIN 11.3 GM/dL (10.7-15.3); MCH 30.1 pg (25.7-33.7); MEAN CELL VOLUME 97.1 fl (80-96); MEAN PLT VOLUME 8.2 fl (7.5-11.1); PLATELET COUNT 191 K/MM3 (134-434); RBC 3.75 M/mm3 (3.60-5.2); RDW 15.7 % (11.6-15.6); WHITE BLOOD COUNT 8.2 K/mm3 (4.0-10.0)
[2019-08-09 06:53] LABS: BLOOD UREA NITROGEN 17.3 mg/dL (7-18); CREATININE 5.3 mg/dL (0.55-1.3); MAGNESIUM 2.1 mg/dL (1.8-2.4); PHOSPHOROUS 4.3 mg/dL (2.5-4.9); POTASSIUM 4.2 mmol/L (3.5-5.1)
[2019-08-09] MEDS: ALBUTEROL SO4 2.5/IPRATROPIUM 0.5 INH SOL 3 ML VIAL.NEB. NEB SCH ×3 (08:30→19:56)
--- NOTE | 2019-08-09 08:48 | PN ---
Progress Note (short form) - Note Progress Note: Seen and examined in the ICU Received iHD bedside removed 3L Remain on NE drip with decreasing dose requirements: 7->3mcg/min Pt refused bipap o/n low grade fever 99f Current Medications Albuterol/Ipratropium (Duoneb -) 1 amp NEB RTID [facility] Last Admin: 08/08/19 20:44 Dose: Not Given Aspirin (Ecotrin -) 81 mg PO DAILY [facility] Aztreonam (Azactam (Restricted To Id) -) 0.5 gm IVPB Q8H-IV SHILPA; Protocol Budesonide/Formoterol Fumarate (Symbicort 80/4.5mcg -) 2 puff IH BID [facility] Last Admin: 08/08/19 21:45 Dose: 2 puff Clopidogrel Bisulfate (Plavix -) 75 mg PO DAILY [facility] Heparin Sodium (Porcine) (Heparin -) 5,000 unit SQ TID [facility] Last Admin: 08/09/19 05:47 Dose: 5,000 unit Norepinephrine Bitartrate 8, (000 mcg/ Dextrose) 500 mls @ 18.75 mls/hr IV TITR SHILPA; Protocol Last Titration: 08/09/19 04:55 Dose: 3 mcg/min, 11.25 mls/hr Sodium Chloride (Normal Saline -) 250 mls @ 3,000 mls/hr IV PRN PRN PRN Reason: Hypotension during Dialysis Stop: 08/09/19 10:22 Metronidazole (Flagyl 500mg Premixed Ivpb -) 500 mg in 100 mls @ 100 mls/hr IVPB Q8H-IV SHILPA Last Admin: 08/09/19 04:23 Dose: 100 mls/hr Aztreonam 0.5 gm/ Sodium (Chloride) 50 mls @ 100 mls/hr IVPB Q8H-IV SHILPA Stop: 08/09/19 18:29 Montelukast Sodium (Singulair -) 10 mg PO HS SHILPA Nystatin (Mycostatin Cream -) 1 applic TP BID [facility] Last Admin: 08/08/19 21:44 Dose: 1 applic Vancomycin HCl (Vancomycin Oral Solution) 250 mg PO Q6HPO SHILPA Last Admin: 08/09/19 06:38 Dose: 250 mg Vital Signs Period Temp Pulse Resp BP Sys/[place] Pulse Ox Last 24 Hr 97.7 F-99.0 F 67-99 20-30 79-140/41-83 100-100 Intake & Output 08/06/19 08/07/19 08/08/19 08/09/19 23:59 23:59 23:59 23:59 Intake Total 575 190.1 Output Total 3000 0 Balance -2425 190.1 Weight 84.822 kg Exam: General: awake and uncooperative w/ exam, does not appear in distress HEENT: PERRL CV frequent PVC's, s1, s2. no m/r/g Pulm: faint insp crackles in bases Abd: obese, tender to palp. +BS Ext: WWP, +1LEedema Neuro: GOMEZ spont, answers question CBC, BMP 08/09/19 05:15 08/09/19 05:15 Micro: pending Assessment/Plan ASSESS: -COPD -HTN -HL -CHF -ESRD ON HD TTS -DM -CVA -SD (in 2K15) w/ stents PLAN: -Norepi drip for MAP 65-75 -Supp FiO2 for an SpO2 > 92% -Nebs -STAT HD -Nocturnal Bi-Pap if accepts -Hold all anti-HTN meds for now -f/u Clxr including Stool -f/u C-Diff -Cover for HAP as well as GI bugs inculding C-Diff Tx -f/u Abd US (r/o ramon), offical read pending -TTE pending -Cont ASA & Plavix -CARDS consulted -CVC, will remove once off pressors, refusing moving TLC to IJ or SCV -FSs -Insulin prn -Normal transfusion thresholds -DVT ppx -cont ICU care given shock Boerem ACNP Pulm/CCM CCT: 35m
--- NOTE | 2019-08-09 08:58 | PN ---
Progress Note (short form) - Note Progress Note: Subjective: No fever or chills. No SOB , denies Abd pain today. no diarrhea Objective: Vital Signs: Last Vital Signs Temp Pulse Resp BP Pulse Ox 98.7 F 85 21 H 126/68 100 08/09/19 06:00 08/09/19 06:00 08/09/19 06:00 08/09/19 06:00 08/08/19 21:00 Laboratory Results - last 24 hr 08/08/19 08/08/19 08/08/19 06:40 06:40 07:55 WBC RBC Hgb Hct MCV MCH MCHC RDW Plt Count 190 MPV Absolute Neuts (auto) Total Counted 100 Neutrophils % Neutrophils % (Manual) 53.0 Band Neutrophils % 2.0 Lymphocytes % Lymphocytes % (Manual) 16.0 Monocytes % Monocytes % (Manual) 16 H Eosinophils % Eosinophils % (Manual) 13.0 H Basophils % Basophils % (Manual) Nucleated RBC % Platelet Estimate Platelet Comment No clumping noted PT with INR INR PTT (Actin FS) Anticoagulation Therapy Puncture Site Patient Temperature ABG pH ABG pCO2 at Pt Temp ABG pO2 at Pt Temp ABG HCO3 ABG O2 Sat (Measured) ABG O2 Content ABG Base Excess [place]iago Test VBG pH POC VBG pCO2 POC VBG pO2 VBG HCO3 VBG O2 Sat (Narciso) VBG Base Excess Carboxyhemoglobin Methemoglobin O2 Delivery Device Oxygen Flow Rate Vent Mode Vent Rate Mechanical Rate PEEP Pressure Support Vent Sodium 139 Potassium 4.1 Chloride 101 Carbon Dioxide 29 Anion Gap 9 BUN 27.9 H Creatinine 7.0 H Est GFR (CKD-EPI)AfAm 6.70 Est GFR (CKD-EPI)NonAf 5.78 Random Glucose 109 H Hemoglobin A1c % Lactic Acid Calcium 8.3 L Phosphorus 5.2 H Magnesium 2.2 Total Bilirubin 0.6 AST 30 ALT 14 Alkaline Phosphatase 207 H Troponin I < 0.02 B-Natriuretic Peptide 40883.5 H Total Protein 7.2 Albumin 2.9 L Triglycerides Cholesterol Total LDL Cholesterol HDL Cholesterol Lipase 249 TSH Influenza A (Rapid) Influenza B (Rapid) 08/08/19 08/08/19 08/08/19 07:55 10:45 11:25 WBC RBC Hgb Hct MCV MCH MCHC RDW Plt Count MPV Absolute Neuts (auto) Total Counted Neutrophils % Neutrophils % (Manual) Band Neutrophils % Lymphocytes % Lymphocytes % (Manual) Monocytes % Monocytes % (Manual) Eosinophils % Eosinophils % (Manual) Basophils % Basophils % (Manual) Nucleated RBC % Platelet Estimate Platelet Comment PT with INR INR PTT (Actin FS) Anticoagulation Therapy Cancelled Puncture Site Cancelled Patient Temperature Cancelled ABG pH Cancelled ABG pCO2 at Pt Temp Cancelled ABG pO2 at Pt Temp Cancelled ABG HCO3 Cancelled ABG O2 Sat (Measured) Cancelled ABG O2 Content Cancelled ABG Base Excess Cancelled [place] Test Cancelled VBG pH 7.33 POC VBG pCO2 54.5 H POC VBG pO2 < 49 H VBG HCO3 28.1 VBG O2 Sat (Narciso) 73.6 VBG Base Excess 2.7 H Carboxyhemoglobin Cancelled Methemoglobin Cancelled O2 Delivery Device Cancelled Oxygen Flow Rate Cancelled Vent Mode Cancelled Vent Rate Cancelled Mechanical Rate Cancelled PEEP Cancelled Pressure Support Vent Cancelled Sodium Potassium Chloride Carbon Dioxide Anion Gap BUN Creatinine Est GFR (CKD-EPI)AfAm Est GFR (CKD-EPI)NonAf Random Glucose Hemoglobin A1c % Lactic Acid 2.4 H* Calcium Phosphorus Magnesium Total Bilirubin AST ALT Alkaline Phosphatase Troponin I B-Natriuretic Peptide Total Protein Albumin Triglycerides Cholesterol Total LDL Cholesterol HDL Cholesterol Lipase TSH Influenza A (Rapid) Influenza B (Rapid) 08/08/19 08/08/19 08/08/19 14:50 14:50 14:50 WBC 9.0 RBC 3.82 Hgb 11.5 Hct 37.4 MCV 97.8 H MCH 30.0 MCHC 30.6 L RDW 16.3 H Plt Count 224 MPV 8.6 Absolute Neuts (auto) 5.0 Total Counted Neutrophils % 55.0 Neutrophils % (Manual) 47.0 Band Neutrophils % 0.0 Lymphocytes % 10.5 Lymphocytes % (Manual) 22.0 D Monocytes % 13.3 H Monocytes % (Manual) 10 Eosinophils % 20.7 H* Eosinophils % (Manual) 19.0 H Basophils % 0.5 Basophils % (Manual) 2.0 Nucleated RBC % 0 Platelet Estimate Adequate Platelet Comment PT with INR 14.30 H INR 1.21 H PTT (Actin FS) 38.3 H Anticoagulation Therapy Puncture Site Patient Temperature ABG pH ABG pCO2 at Pt Temp ABG pO2 at Pt Temp ABG HCO3 ABG O2 Sat (Measured) ABG O2 Content ABG Base Excess [place] Test VBG pH POC VBG pCO2 POC VBG pO2 VBG HCO3 VBG O2 Sat (Narciso) VBG Base Excess Carboxyhemoglobin Methemoglobin O2 Delivery Device Oxygen Flow Rate Vent Mode Vent Rate Mechanical Rate PEEP Pressure Support Vent Sodium Potassium Chloride Carbon Dioxide Anion Gap BUN Creatinine Est GFR (CKD-EPI)AfAm Est GFR (CKD-EPI)NonAf Random Glucose Hemoglobin A1c % Lactic Acid Calcium Phosphorus Magnesium Total Bilirubin AST ALT Alkaline Phosphatase Troponin I < 0.02 B-Natriuretic Peptide Total Protein Albumin Triglycerides Cholesterol Total LDL Cholesterol HDL Cholesterol Lipase 144 TSH Influenza A (Rapid) Influenza B (Rapid) 08/08/19 08/08/19 08/08/19 14:50 14:50 14:50 WBC RBC Hgb Hct MCV MCH MCHC RDW Plt Count MPV Absolute Neuts (auto) Total Counted Neutrophils % Neutrophils % (Manual) Band Neutrophils % Lymphocytes % Lymphocytes % (Manual) Monocytes % Monocytes % (Manual) Eosinophils % Eosinophils % (Manual) Basophils % Basophils % (Manual) Nucleated RBC % Platelet Estimate Platelet Comment PT with INR INR PTT (Actin FS) Anticoagulation Therapy Puncture Site Patient Temperature ABG pH ABG pCO2 at Pt Temp ABG pO2 at Pt Temp ABG HCO3 ABG O2 Sat (Measured) ABG O2 Content ABG Base Excess [place] Test VBG pH POC VBG pCO2 POC VBG pO2 VBG HCO3 VBG O2 Sat (Narciso) VBG Base Excess Carboxyhemoglobin Methemoglobin O2 Delivery Device Oxygen Flow Rate Vent Mode Vent Rate Mechanical Rate PEEP Pressure Support Vent Sodium 139 Potassium 3.9 Chloride 102 Carbon Dioxide 28 Anion Gap 9 BUN 29.0 H Creatinine 7.3 H Est GFR (CKD-EPI)AfAm 6.37 Est GFR (CKD-EPI)NonAf 5.49 Random Glucose 93 Hemoglobin A1c % Lactic Acid 1.9 Calcium 8.4 L Phosphorus Magnesium Total Bilirubin 0.5 AST 18 ALT 11 L Alkaline Phosphatase 189 H Troponin I B-Natriuretic Peptide Total Protein 7.0 Albumin 2.8 L Triglycerides 78 Cholesterol 83 Total LDL Cholesterol 34 HDL Cholesterol 41 Lipase TSH 1.45 Influenza A (Rapid) Negative Influenza B (Rapid) Negative 08/09/19 08/09/19 08/09/19 05:15 05:15 05:15 WBC 8.2 RBC 3.75 Hgb 11.3 Hct 36.4 MCV 97.1 H MCH 30.1 MCHC 31.0 L RDW 15.7 H Plt Count 191 MPV 8.2 Absolute Neuts (auto) Total Counted Neutrophils % Neutrophils % (Manual) Band Neutrophils % Lymphocytes % Lymphocytes % (Manual) Monocytes % Monocytes % (Manual) Eosinophils % Eosinophils % (Manual) Basophils % Basophils % (Manual) Nucleated RBC % Platelet Estimate Platelet Comment PT with INR INR PTT (Actin FS) Anticoagulation Therapy Puncture Site Patient Temperature ABG pH ABG pCO2 at Pt Temp ABG pO2 at Pt Temp ABG HCO3 ABG O2 Sat (Measured) ABG O2 Content ABG Base Excess [place] Test VBG pH POC VBG pCO2 POC VBG pO2 VBG HCO3 VBG O2 Sat (Narciso) VBG Base Excess Carboxyhemoglobin Methemoglobin O2 Delivery Device Oxygen Flow Rate Vent Mode Vent Rate Mechanical Rate PEEP Pressure Support Vent Sodium 142 Potassium 4.2 Chloride 103 Carbon Dioxide 30 Anion Gap 9 BUN 17.3 Creatinine 5.3 H Est GFR (CKD-EPI)AfAm 9.38 Est GFR (CKD-EPI)NonAf 8.09 Random Glucose 60 L Hemoglobin A1c % 4.8 Lactic Acid Calcium 9.0 Phosphorus 4.3 Magnesium 2.1 Total Bilirubin AST ALT Alkaline Phosphatase Troponin I B-Natriuretic Peptide Total Protein Albumin Triglycerides Cholesterol Total LDL Cholesterol HDL Cholesterol Lipase TSH Influenza A (Rapid) Influenza B (Rapid) Physical Exam: NAD, awake, alert, cooperative .MMM, no JVD poor dentition . CV: RRR, no MRG Lungs: scattered wheezes and minimal fine crackles at base Abd: generalized tenderness in all quadrants. especially in RUQ. hypoactive BS Ext: 1+ edema on LE. ASSESSMENT AND PLAN: 63 y/o lady with h/o ESRD on HD TTS, HTN, HLP, CVA, PR in 2014, s/p stents, CVA , COPd, CHF, DM, and other medical problems who presented with SOB , CP, diarrhea and fevers. she developed hypotension in ER and was found to have fluid overload . 1- Pulmonary edema, due to acute heart failure ( ? type), and ESRD. can't r/o ACS as a trigger , also arrhythmias - tele with episodes of wide complex tachycardia ( VTAch?) and narrow complex tachycardia ( possibly SVT) - Spoke to Dr. Charles, who will see her soon - echo pending 2- CP: not sure of etiology. sounds atypical but patient is high risk. resolved now - Trop neg - Echo - Tele as above . 3- Abd pain: US over night with prelim acute cholecystitis . follow final read - aztreonam 250 mg q8h - flagly 500 Q 8h - surgery to evaluate today . - will probably be able to wean her of pressors today - diarrhea resolved. dc empiric po vanco - if recurrence, follow stool cx and c diff - Id consult 4- Septic shock. likely due to acute cholecystitis - on Levo 3 mcg/min. will taper off 5- H/o HTN: hold off imdur , lisinopril, and BB 6- H/o CAD, CVA: cont ASa and plavix 7- ESRD: had HD yesterday hold heparin sq in case she has sx today Visit type - Emergency Visit Emergency Visit: Yes ED Registration Date: 08/08/19 Care time: The patient presented to the Emergency Department on the above date and was hospitalized for further evaluation of their emergent condition. - New Patient This patient is new to me today: No - Critical Care Critical Care patient: Yes Total Critical Care Time (in minutes): 30 Critical Care Statement: The care of this patient involved high complexity decision making to prevent further life threatening deterioration of the patient 's condition and/or to evaluate & treat vital organ system(s) failure or risk of failure.
[2019-08-09 09:39] LABS: ANISOCYTOSIS 1+; MACROCYTOSIS 1+; PLATELET ESTIMATE NORMAL
[2019-08-09] MEDS ORDERED: SODIUM CHLORIDE IVPB SCH (10:00)
[2019-08-09] MEDS ORDERED: AZTREONAM IVPB SCH (10:00)
--- NOTE | 2019-08-09 10:11 | EKG ---
Test Reason : Blood Pressure : / mmHG Vent. Rate : 085 BPM Atrial Rate : 085 BPM P-R Int : 224 ms QRS Dur : 096 ms QT Int : 418 ms P-R-T Axes : 052 -08 089 degrees QTc Int : 497 ms SINUS RHYTHM WITH MARKED SINUS ARRHYTHMIA WITH 1ST DEGREE A-V BLOCK WITH OCCASIONAL PREMATURE VENTRICULAR COMPLEXES AND PREMATURE ATRIAL COMPLEXES SEPTAL INFARCT (CITED ON OR BEFORE 27-OCT-2008) ABNORMAL ECG WHEN COMPARED WITH ECG OF 08-AUG-2019 13:25, NO SIGNIFICANT CHANGE WAS FOUND Confirmed by RENATA SALAS MD ([id number]) on 08/09/2019 10:11:10 AM Referred By: Jocelyne BARON Confirmed By:RENATA SALAS MD
--- NOTE | 2019-08-09 10:13 | PN ---
Progress Note (short form) - Note Progress Note: ID consult dictated imp/reccd 63 yo female esrd/hd admitted from a [facility] with SOB/chest discomfort admitted to ICU for hypotension requiring pressors she has had chronic RUQ pain for which she was just admitted overngiht to [facility]- discharged 08/07 no fevers very poor historian s/p HD reported diarrhea on admission that has resolved penicillin allergy- ?hives had us overnight for RUQ pain c/w acute cholycystitis- prelim report recent ct scan abd/pelvis 08/08 no acute gallbladder disease noted started on azactam and flagyl add vanocmycin 1 gram (on HD) await surgical evaluation Problem List - Problems (1) RUQ abdominal pain Code(s): R10.11 - RIGHT UPPER QUADRANT PAIN (2) ESRD (end stage renal disease) on dialysis Code(s): N18.6 - END STAGE RENAL DISEASE; Z99.2 - DEPENDENCE ON RENAL DIALYSIS (3) Penicillin allergy Code(s): Z88.0 - ALLERGY STATUS TO PENICILLIN
--- NOTE | 2019-08-09 10:15 | EKG ---
Test Reason : Blood Pressure : / mmHG Vent. Rate : 078 BPM Atrial Rate : 078 BPM P-R Int : 220 ms QRS Dur : 098 ms QT Int : 412 ms P-R-T Axes : 072 -06 115 degrees QTc Int : 469 ms SINUS RHYTHM WITH 1ST DEGREE A-V BLOCK WITH PREMATURE SUPRAVENTRICULAR COMPLEXES AND WITH OCCASIONAL PREMATURE VENTRICULAR COMPLEXES LOW VOLTAGE QRS SEPTAL INFARCT (CITED ON OR BEFORE 27-OCT-2008) ABNORMAL ECG WHEN COMPARED WITH ECG OF 08-AUG-2019 06:08, PREMATURE SUPRAVENTRICULAR COMPLEXES ARE NOW PRESENT CT INTERVAL HAS INCREASED Confirmed by RENATA SALAS MD ([id number]) on 08/09/2019 10:14:50 AM Referred By: Jocelyne BARON Confirmed By:RENATA SALAS MD
[2019-08-09] MEDS: NOREPINEPHRINE BITARTRATE 8,000 MCG in DEXTROSE 5%-WATER - 492 ML IV SCH (10:21)
[2019-08-09] MEDS ORDERED: PT OWN MED DRAWER 7, Y5N ONE (10:28)
[2019-08-09] MEDS ORDERED: VANCOMYCIN 1 GRAM (PRE-DOCKED) 1,000 MG/250 ML BAG IVPB ONE (10:30)
[2019-08-09] MEDS: CLOPIDOGREL BISULFATE 75 MG TABLET (FP) PO SCH (10:36)
[2019-08-09] MEDS: ASPIRIN COATED 81 MG TABLET.EC PO SCH (10:37)
[2019-08-09] MEDS: NYSTATIN 100,000 UNIT/GM TOPICAL CREAM 15 GM TUBE TP SCH ×2 (10:37→21:15)
[2019-08-09] MEDS: MONTELUKAST NA 10 MG TABLET PO SCH ×2 (10:37→21:14)
[2019-08-09] MEDS: BUDESONIDE/FORMETEROL FUMARATE 80/4.5 mcg INHALER IH SCH ×2 (10:38→21:15)
[2019-08-09] MEDS ORDERED: AZTREONAM 0.5 GM in DEXTROSE 5%-WATER - 50 ML IVPB SCH (11:15)
[2019-08-09] MEDS: AZTREONAM 0.5 GM in DEXTROSE 5%-WATER - 50 ML IVPB SCH ×2 (11:43→23:58)
--- NOTE | 2019-08-09 17:29 | PN ---
Progress Note, Physician History of Present Illness: Pt seen and examined at bedside. She is awake and alert. She denies shortness of breath. - Current Medication List Current Medications: Active Medications Albuterol/Ipratropium (Duoneb -) 1 amp NEB RTID [facility] Last Admin: 08/09/19 13:55 Dose: 1 amp Aspirin (Ecotrin -) 81 mg PO DAILY [facility] Last Admin: 08/09/19 10:37 Dose: 81 mg Budesonide/Formoterol Fumarate (Symbicort 80/4.5mcg -) 2 puff IH BID [facility] Last Admin: 08/09/19 10:38 Dose: 2 puff Clopidogrel Bisulfate (Plavix -) 75 mg PO DAILY [facility] Last Admin: 08/09/19 10:36 Dose: 75 mg Heparin Sodium (Porcine) (Heparin -) 5,000 unit SQ TID [facility] Last Admin: 08/09/19 05:47 Dose: 5,000 unit Norepinephrine Bitartrate 8, (000 mcg/ Dextrose) 500 mls @ 18.75 mls/hr IV TITR [facility]; Protocol Last Admin: 08/09/19 10:21 Dose: Not Given Sodium Chloride (Normal Saline -) 250 mls @ 3,000 mls/hr IV PRN PRN PRN Reason: Hypotension during Dialysis Stop: 08/09/19 10:22 Metronidazole (Flagyl 500mg Premixed Ivpb -) 500 mg in 100 mls @ 100 mls/hr IVPB Q8H-IV [facility] Last Admin: 08/09/19 10:36 Dose: 100 mls/hr Aztreonam 0.5 gm/ Dextrose 50 mls @ 100 mls/hr IVPB Q12H [facility]; Protocol Last Admin: 08/09/19 11:43 Dose: Not Given Montelukast Sodium (Singulair -) 10 mg PO HS [facility] Last Admin: 08/09/19 10:37 Dose: 10 mg Nystatin (Mycostatin Cream -) 1 applic TP BID [facility] Last Admin: 08/09/19 10:37 Dose: 1 applic - Objective Vital Signs: Vital Signs Temperature 98.3 F 08/09/19 17:00 Pulse Rate 86 08/09/19 17:00 Respiratory Rate 22 H 08/09/19 17:00 Blood Pressure 98/62 08/09/19 17:00 O2 Sat by Pulse Oximetry (%) 96 08/09/19 09:50 Constitutional: Yes: Calm Eyes: Yes: Conjunctiva Clear HENT: Yes: Atraumatic Neck: Yes: Supple Cardiovascular: Yes: S1, S2 Respiratory: Yes: CTA Bilaterally Gastrointestinal: Yes: Soft Genitourinary: Yes: WNL Musculoskeletal: Yes: WNL Edema: Yes Edema: LLE: Trace, RLE: Trace Neurological: Yes: Oriented Psychiatric: Yes: Oriented Labs: CBC, BMP 08/09/19 05:15 08/09/19 05:15 INR, PTT INR 1.21 (0.83-1.09) H 08/08/19 14:50 Problem List - Problems (1) ESRD (end stage renal disease) on dialysis Code(s): N18.6 - END STAGE RENAL DISEASE; Z99.2 - DEPENDENCE ON RENAL DIALYSIS (2) Fluid overload Code(s): E87.70 - FLUID OVERLOAD, UNSPECIFIED Assessment/Plan Current Medications Generic Name Dose Route Start Last Admin Trade Name Freq PRN Reason Stop Dose Admin Albuterol/Ipratropium 1 amp 08/08/19 20:00 08/09/19 13:55 Duoneb - NEB 1 amp RTID [facility] Administration Aspirin 81 mg 08/09/19 10:00 08/09/19 10:37 Ecotrin - PO 81 mg DAILY [facility] Administration Budesonide/Formoterol Fumarate 2 puff 08/08/19 22:00 08/09/19 10:38 Symbicort 80/4.5mcg - IH 2 puff BID [facility] Administration Clopidogrel Bisulfate 75 mg 08/09/19 10:00 08/09/19 10:36 Plavix - PO 75 mg DAILY [facility] Administration Heparin Sodium (Porcine) 5,000 unit 08/08/19 22:00 08/09/19 05:47 Heparin - SQ 5,000 unit TID [facility] Administration Norepinephrine Bitartrate 8, 500 mls @ 18.75 mls/hr 08/08/19 09:45 08/09/19 10:21 000 mcg/ Dextrose IV Not Given TITR [facility] Protocol 5 MCG/MIN Sodium Chloride 250 mls @ 3,000 mls/hr 08/08/19 10:22 Normal Saline - IV 08/09/19 10:22 PRN PRN Hypotension during Dialysis Metronidazole 500 mg in 100 mls @ 100 mls/hr 08/09/19 03:30 08/09/19 10:36 Flagyl 500mg Premixed Ivpb - IVPB 100 mls/hr Q8H-IV [facility] Administration Aztreonam 0.5 gm/ Dextrose 50 mls @ 100 mls/hr 08/09/19 11:27 08/09/19 11:43 IVPB Not Given Q12H [facility] Protocol Montelukast Sodium 10 mg 08/09/19 10:00 08/09/19 10:37 Singulair - PO 10 mg HS [facility] Administration Nystatin 1 applic 08/08/19 22:00 08/09/19 10:37 Mycostatin Cream - TP 1 applic BID [facility] Administration Impression 1. esrd 2. fluid overload 3. hypotension 4. abd pain 5. copd 6. nicotine use 7. cad 8. cva Plan - next HD on Saturday - renal diet when eating - monitor pulse ox - potassium stable
--- NOTE | 2019-08-09 23:18 | CONSULT ---
Consult - Past Medical History Cardio/Vascular: Yes: HTN, Hyperlipdemia Pulmonary: Yes: COPD Renal/: Yes: Renal Failure, Hemodialysis Endocrine: Yes: Diabetes Mellitus - Alcohol/Substance Use Hx Alcohol Use: No - Smoking History Smoking history: Current every day smoker Have you smoked in the past 12 months: Yes Aproximately how many cigarettes per day: 2 Home Medications - Allergies Allergies/Adverse Reactions: Allergies Allergy/AdvReac Type Severity Reaction Status Date / Time Penicillins Allergy Intermediate Hives Verified 08/08/19 06:01 - Home Medications Home Medications: Ambulatory Orders Albuterol Sulfate [Proair Respiclick] 2 puff IH QID PRN 08/08/19 Aspirin [Aspirin EC] 81 mg PO DAILY 08/08/19 Atorvastatin Ca [Lipitor] 80 mg PO HS 08/08/19 Budesonide/Formeterol Fumarate [SYMBICORT 80/4.5mcg -] 2 inh PO BID 08/08/19 Calcium Carbonate/Vitamin D3 [Calcium 600-D3 20Mcg(800 Unit)] 1 each PO DAILY Clopidogrel Bisulfate [Plavix -] 75 mg PO DAILY 08/08/19 Clotrimazole 30 ml TP DAILY 08/08/19 Cyanocobalamin [Vitamin B12 -] 100 mcg PO DAILY 08/08/19 Fluticasone Furoate [Children's Flonase Sensimist] 5.9 ml NS BID 08/08/19 Folic Acid 1 mg PO DAILY 08/08/19 Gabapentin 100 mg PO BID 08/08/19 Ipratropium/Albuterol Sulfate [Combivent Respimat Inhal [place]] 4 gm IH BID 08/08 Isosorbide Dinitrate [Isordil] 20 mg PO TID 08/08/19 Lisinopril 10 mg PO DAILY 08/08/19 Metoprolol Succinate 12.5 mg PO DAILY 08/08/19 Montelukast Sodium [Singulair] 10 mg PO DAILY 08/08/19 Mupirocin 1 gm TP BID 08/08/19 Nitroglycerin 0.4 mg SL DAILY 08/08/19 Sennosides [Senna] 17.2 mg PO HS 08/08/19 Sevelamer HCl 800 mg PO TID 08/08/19 Physical Exam Vital Signs: Vital Signs Temperature 98.2 F 08/09/19 22:00 Pulse Rate 76 08/09/19 22:00 Respiratory Rate 22 H 08/09/19 22:00 Blood Pressure 93/68 08/09/19 22:00 O2 Sat by Pulse Oximetry (%) 97 08/09/19 21:58 Labs: CBC, BMP 08/09/19 05:15 08/09/19 05:15
[2019-08-10] MEDS ORDERED: AZTREONAM 1 GM VIAL (RESTRICTED TO ID) IVPB SCH (02:00)
--- NOTE | 2019-08-10 04:29 | PN ---
Progress Note, Physician Chief Complaint: Pt animated earlier,per nurse; now lying in bed, opens eyes briefly, moves limbs on command, but does not engage in conversation. History of Present Illness: Ms. Perales is a [id number]-year-old black female with PM history of end-stage renal disease-->hemodialysis Saturday, hypertension, diabetes, COPD/bronchial asthma, obesity, sedentary lifestyle, here today complaining of cough and not feeling well. pt has been feeling sob, and c/o chest pain. call EMS today, felt too unwell to go to dialysis. on EMS arrival, pt was given 4 asa 81mg. States she has had a cough; also c/o subjective fever and chills. no leg swelling. Pt says she has fainted "many times" over the years, including at least 3 times this year; she says in February, she fainted and fell off the bed, breaking some ribs. Pt presently lives in a usp; transport is provided her to go to hemodialysis (last dialysis was ). - Current Medication List Current Medications: Active Medications Albuterol/Ipratropium (Duoneb -) 1 amp NEB RTID [facility] Last Admin: 08/09/19 19:56 Dose: 1 amp Aspirin (Ecotrin -) 81 mg PO DAILY [facility] Last Admin: 08/09/19 10:37 Dose: 81 mg Budesonide/Formoterol Fumarate (Symbicort 80/4.5mcg -) 2 puff IH BID [facility] Last Admin: 08/09/19 21:15 Dose: 2 puff Clopidogrel Bisulfate (Plavix -) 75 mg PO DAILY [facility] Last Admin: 08/09/19 10:36 Dose: 75 mg Heparin Sodium (Porcine) (Heparin -) 5,000 unit SQ TID [facility] Last Admin: 08/09/19 05:47 Dose: 5,000 unit Norepinephrine Bitartrate 8, (000 mcg/ Dextrose) 500 mls @ 18.75 mls/hr IV TITR [facility]; Protocol Last Admin: 08/09/19 10:21 Dose: Not Given Sodium Chloride (Normal Saline -) 250 mls @ 3,000 mls/hr IV PRN PRN PRN Reason: Hypotension during Dialysis Stop: 08/09/19 10:22 Metronidazole (Flagyl 500mg Premixed Ivpb -) 500 mg in 100 mls @ 100 mls/hr IVPB Q8H-IV [facility] Last Admin: 08/10/19 02:11 Dose: 100 mls/hr Aztreonam 0.5 gm/ Dextrose 50 mls @ 100 mls/hr IVPB Q12H [facility]; Protocol Last Admin: 08/09/19 23:58 Dose: 100 mls/hr Montelukast Sodium (Singulair -) 10 mg PO HS [facility] Last Admin: 08/09/19 21:14 Dose: 10 mg Nystatin (Mycostatin Cream -) 1 applic TP BID [facility] Last Admin: 08/09/19 21:15 Dose: 1 applic - Objective Vital Signs: Vital Signs Temperature 98.8 F 08/10/19 02:00 Pulse Rate 104 H 08/10/19 04:00 Respiratory Rate 22 H 08/10/19 04:00 Blood Pressure 122/78 08/10/19 04:00 O2 Sat by Pulse Oximetry (%) 97 08/09/19 21:58 Constitutional: Yes: Obese Eyes: Yes: WNL HENT: Yes: WNL Neck: Yes: WNL Cardiovascular: Yes: Pulse Irregular, S1 (varies in intenstiy), S2 Respiratory: Yes: Diminished Gastrointestinal: Yes: Soft. No: Tenderness ...Rectal Exam: Yes: Deferred Genitourinary: No: Anuria Breast(s): Yes: WNL Musculoskeletal: Yes: Muscle Weakness Extremities: Yes: Cool Edema: No Peripheral Pulses WNL: Yes Integumentary: Yes: WNL Neurological: Yes: Lethargy Psychiatric: Yes: Alert, Other Labs: CBC, BMP 08/09/19 05:15 08/09/19 05:15 INR, PTT INR 1.21 (0.83-1.09) H 08/08/19 14:50 Abnormal Lab Results 08/09/19 08/09/19 05:15 05:15 MCV 97.1 H MCHC 31.0 L RDW 15.7 H Eosinophils % (Manual) 14.6 H Nucleated RBC % 1 H Metamyelocytes 3 H Creatinine 5.3 H Random Glucose 60 L - ....Imaging Chest X-ray: Image Reviewed EKG: Image Reviewed Other: Image Reviewed Problem List - Problems (1) Sleep apnea Assessment/Plan: sleep studies, if not already done. 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 Code(s): N18.6 - END STAGE RENAL DISEASE; Z99.2 - DEPENDENCE ON RENAL DIALYSIS (5) Cholelithiasis Assessment/Plan: US: stones. r/o cholecystitis workup in progress Code(s): K80.20 - CALCULUS OF GALLBLADDER W/O CHOLECYSTITIS W/O OBSTRUCTION (6) Acute on chronic diastolic (congestive) heart failure Assessment/Plan: +JVD; wheezing; congestive changes on CXR TNI < 0.02; f/u serially. On norepinephrine for low BP. For repeat hemodialysis per head strength and conditioning coach. F/u EKG, telemetry: NSR, periods of 1st degree AVB,sinus arrhythmia with periods of wide-complex tachycardia, Code(s): I50.33 - ACUTE ON CHRONIC DIASTOLIC (CONGESTIVE) HEART FAILURE (7) Cardiac arrhythmia Assessment/Plan: EKG: sinus rhythm with sinus arrhythmia; frequent PVCs, with runs of slow wide- complex beats. No chest verma. F/u on telemetry: for hemodialysis. Taper off norepinephrine as BP improves. F/u ECHO for LVEF, chamber sizes, regional wall motion, valve status. F/u prior workup regarding CAD, arrhythmia. Code(s): I49.9 - CARDIAC ARRHYTHMIA, UNSPECIFIED Assessment/Plan CCU time spent: 40 minutes.
[2019-08-10] MEDS: HEPARIN NA (PORCINE) 5,000 UNITS/ML 1ML VIAL SQ SCH ×3 (06:50→22:22)
[2019-08-10] MEDS: ALBUTEROL SO4 2.5/IPRATROPIUM 0.5 INH SOL 3 ML VIAL.NEB. NEB SCH ×3 (07:40→21:25)
[2019-08-10 08:28] LABS: BASO % 0.9 % (0-2.0); EOS % 16.8 % (0-4.5); HEMATOCRIT 35.9 % (32.4-45.2); HEMOGLOBIN 11.3 GM/dL (10.7-15.3); MCH 30.4 pg (25.7-33.7); MCHC 31.6 g/dl (32.0-36.0); MEAN CELL VOLUME 96.4 fl (80-96); MEAN PLT VOLUME 8.7 fl (7.5-11.1); NEUT % 56.3 % (42.8-82.8); PLATELET COUNT 165 K/MM3 (134-434); RBC 3.72 M/mm3 (3.60-5.2); WHITE BLOOD COUNT 8.2 K/mm3 (4.0-10.0)
[2019-08-10 08:32] LABS: ALBUMIN 2.8 g/dl (3.4-5.0); BILIRUBIN,TOTAL 0.7 mg/dL (0.2-1); BLOOD UREA NITROGEN 26.3 mg/dL (7-18); MAGNESIUM 2.1 mg/dL (1.8-2.4); PHOSPHOROUS 4.6 mg/dL (2.5-4.9); POTASSIUM 4.2 mmol/L (3.5-5.1); TOT PROT 6.8 g/dl (6.4-8.2)
[2019-08-10] MEDS ORDERED: DEXTROSE 50%-WATER - 25 GM/50 ML VIAL IVPUSH ONE ×2 (08:46→18:56)
[2019-08-10] MEDS ORDERED: DEXTROSE 50%-WATER 25 GM/50 ML DISP.SYRIN ONE ×2 (08:47→12:21)
[2019-08-10] MEDS ORDERED: PT OWN MED DRAWER 7, Y5N ONE ×2 (09:21→16:04)
[2019-08-10] MEDS: ASPIRIN COATED 81 MG TABLET.EC PO SCH (09:25)
[2019-08-10] MEDS: CLOPIDOGREL BISULFATE 75 MG TABLET (FP) PO SCH (09:26)
[2019-08-10] MEDS: BUDESONIDE/FORMETEROL FUMARATE 80/4.5 mcg INHALER IH SCH ×2 (09:26→22:23)
[2019-08-10] MEDS: NYSTATIN 100,000 UNIT/GM TOPICAL CREAM 15 GM TUBE TP SCH ×2 (09:26→22:23)
--- NOTE | 2019-08-10 10:10 | PN ---
Progress Note (short form) - Note Progress Note: no fevers very poor historian US stones and sludge, no pericholycystic fluid to suggest acute cholycystitis Vital Signs Period Temp Pulse Resp BP Sys/Navarro Pulse Ox Last 24 Hr 98.2 F-99.1 F 76-104 20-27 93-122/56-92 97-98 cor-rrr lungs clear abd soft, no distention, mild ruq discomfort to palpation ext no edema CBC, BMP 08/10/19 05:45 08/10/19 05:45 Microbiology 08/08/19 08:55 Blood - Peripheral Venous Blood Culture - Preliminary NO GROWTH OBTAINED AFTER 48 HOURS, INCUBATION TO CONTINUE FOR 3 DAYS. 08/08/19 08:55 Blood - Peripheral Venous Blood Culture - Preliminary NO GROWTH OBTAINED AFTER 48 HOURS, INCUBATION TO CONTINUE FOR 3 DAYS. a/p s/p HD reported diarrhea on admission that has resolved penicillin allergy- ?hives had us overnight for RUQ pain recent ct scan abd/pelvis 08/08 no acute gallbladder disease noted, healing right 8th rib fracture started on azactam and flagyl received vanocmycin 1 gram (on HD) yesterday await surgical evaluation consider d/c antibiotics and observe will d/w team after surgical consultation
--- NOTE | 2019-08-10 10:12 | CONSULT ---
Consult Consult Specialty:: General Surgery Referred by:: Dixon Huntley Reason for Consultation:: ? cholecystitis - History of Present Illness Chief Complaint: pt will not offer History of Present Illness: 63yo F with multiple medical problems including HTN, CHF, DM, COPD/asthma, + smoker, CVA 06/13 on ASA/plavix, ESRD on HD TTS, admitted on Saturday with c/o chest tightness for 2 days and diarrhea for 6-7 days. In ER, she had T99.2, normal wbc, elevated BUN/Cr, normal LFTs except mildly elevated alk phos; she had POC US showing gallstones and decreased cardiac function with plethoric IVC. She had CT showing IVC filter, gallstones without evidence of cholecystitis , calcifications in pancreas of unclear significance, healing posterior arch R 8th rib fracture. She was hypotensive in the ER, had femoral CVC placed and was started on levophed. She was admitted to the ICU and dialyzed Saturday with 3L fluid removal. Pressor was weaned off the next day. Surgery was asked to assess for possible cholecystitis. She is seen and examined in ICU bed, sleeping. She refused to keep her eyes open or answer to, "What is your name?" at first. After being seen briefly along with Dr. Ochoa, she offered her name and agreed to be seen and examined by me. When asked if she has pain in her belly, she said no. When asked if she did have pain there, she again refused to answer. At one point, she simply said , "yes," but again refused to interact when asked where it was and when it started. Unable to assess patient at this time. Will try again later. Reassessed at 9:30 pm in ICU: Pt more awake, answered some questions, but very limited cooperation/ responsiveness. Very poor historian. Admits to abdominal pain on admission/started the day of, but states it is not currently there. Asked where, she first reaches for her lower chest, then indicates and states her lower abdomen. Overall feels about the same as on admission, but will not elaborate. Denies N/V. Admits to feeling hot at home. Asked about diarrhea or constipation , she notes having had loose stool. Asked for how long, she says, "a week," then corrects to, "a day." She does not urinate. She does smoke cigarettes, will not say how many daily. Denies alcohol or drug use. Allergic to penicillin. Had one c/section. She ate dinner, and denies nausea or pain with eating. She eventually closed her eyes and would not really answer any more questions. Limited cooperation with exam. 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) Cardio/Vascular: Yes: CHF (diastolic), HTN, Hyperlipdemia Pulmonary: Yes: Asthma, COPD, Sleep Apnea Renal/: Yes: Renal Failure, Hemodialysis Reproductive: Yes: Postmenopausal Endocrine: Yes: Diabetes Mellitus - Past Surgical History Past Surgical History: Yes: AV Fistula/Graft (left arm fistula), Additional Surgical History: IVC filter - Alcohol/Substance Use Hx Alcohol Use: No History of Substance Use: reports: None - Smoking History Smoking history: Current every day smoker Have you smoked in the past 12 months: Yes Aproximately how many cigarettes per day: 2 Home Medications - Allergies Allergies/Adverse Reactions: Allergies Allergy/AdvReac Type Severity Reaction Status Date / Time Penicillins Allergy Intermediate Hives Verified 08/08/19 06:01 - Home Medications Home Medications: Ambulatory Orders Aspirin [Aspirin EC] 81 mg PO DAILY 08/08/19 Atorvastatin Ca [Lipitor] 80 mg PO HS 08/08/19 Budesonide/Formeterol Fumarate [SYMBICORT 80/4.5mcg -] 2 inh PO BID 08/08/19 Clopidogrel Bisulfate [Plavix -] 75 mg PO DAILY 08/08/19 Clotrimazole 30 ml TP DAILY 08/08/19 Cyanocobalamin [Vitamin B12 -] 100 mcg PO DAILY 08/08/19 Folic Acid 1 mg PO DAILY 08/08/19 Gabapentin 100 mg PO BID 08/08/19 Isosorbide Dinitrate [Isordil] 20 mg PO TID 08/08/19 Lisinopril 10 mg PO DAILY 08/08/19 Metoprolol Succinate 12.5 mg PO DAILY 08/08/19 Montelukast Sodium [Singulair] 10 mg PO DAILY 08/08/19 Mupirocin 1 gm TP BID 08/08/19 Nitroglycerin 0.4 mg SL DAILY 08/08/19 Sennosides [Senna] 17.2 mg PO HS 08/08/19 Sevelamer HCl 800 mg PO TID 08/08/19 Family Medical History Family History: Unable to Obtain (pt will not cooperate; noncontributory) Review of Systems Unable to obtain ROS, reason: very limited/pt uncoop - Review of Systems Constitutional: reports: Fever (subjective?). denies: Chills Cardiovascular: reports: Chest Pain (per chart) Respiratory: reports: Cough (acknowledged that she always has it) Gastrointestinal: reports: Abdominal Pain (with hpi), Diarrhea (with hpi). denies: Constipation, Nausea, Rectal Bleeding, Vomiting, Vomiting Blood Genitourinary: reports: Other (anuric (HD)) Physical Exam Vital Signs: Vital Signs Temperature 99.1 F 08/10/19 06:00 Pulse Rate 88 08/10/19 09:39 Respiratory Rate 20 08/10/19 09:39 Blood Pressure 118/56 L 08/10/19 09:39 O2 Sat by Pulse Oximetry (%) 97 08/09/19 21:58 Vital Signs Period Temp Pulse Resp BP Sys/[place] Pulse Ox Last 24 Hr 98.2 F-99.1 F 76-108 20-27 91-122/52-78 97-97 Constitutional: Yes: No Distress, Calm, Obese Eyes: Yes: Conjunctiva Clear, EOM Intact. No: Sclera Icterus HENT: Yes: Atraumatic, Normocephalic Neck: Yes: Supple, Trachea Midline Cardiovascular: Yes: Pulse Irregular (PVCs present). No: Bradycardia, Tachycardia Respiratory: Yes: Regular, CTA Bilaterally, Cough, On Nasal O2 Gastrointestinal: Yes: Soft, Abdomen, Obese, Hyperactive Bowel Sounds, Other ( well-healed lower midline scar). No: Tenderness (? - at first, states "a little bit" to palpation of RUQ, RLQ, LLQ; on repeat exam few minutes later, denies tenderness in all quadrants), Tenderness, Epigastrium, Tenderness, Rebound (no guarding or rebound) ...Rectal Exam: Yes: Deferred Renal/: Yes: Anuria (HD), CVA Tenderness - Left (states "a little bit" to palpation), CVA Tenderness - Right (states "a little bit" to palpation) Musculoskeletal: No: Joint Stiffness, Joint Swelling Extremities: Yes: Other (left arm AV fistula with good thrill; left groin dressing where CVC has been removed (c/d/i)). No: Cool, Cyanosis Edema: No Peripheral Pulses WNL: Yes Integumentary: No: Jaundice, Rash Neurological: Yes: Alert, Oriented (knows name, initially seems oriented and responsive, became less clear about answers with questioning) Psychiatric: Yes: Alert. No: Agitated Labs: CBC, BMP 08/10/19 05:45 eosinophils and monocytes high 08/10/19 05:45 CMP Sodium 139 mmol/L (136-145) 08/10/19 05:45 Potassium 4.2 mmol/L (3.5-5.1) 08/10/19 05:45 Chloride 101 mmol/L (98-107) 08/10/19 05:45 Carbon Dioxide 30 mmol/L (21-32) 08/10/19 05:45 Anion Gap 8 MMOL/L (8-16) 08/10/19 05:45 BUN 26.3 mg/dL (7-18) H 08/10/19 05:45 Creatinine 7.0 mg/dL (0.55-1.3) H 08/10/19 05:45 Est GFR (CKD-EPI)AfAm 6.70 08/10/19 05:45 Est GFR (CKD-EPI)NonAf 5.78 08/10/19 05:45 POC Glucometer 153 UNITS (80-120) 08/10/19 18:40 Random Glucose 47 mg/dL (74-106) L* 08/10/19 05:45 Hemoglobin A1c % 4.8 % (4.2-6.3) 08/09/19 05:15 Lactic Acid 1.9 mmol/L (0.4-2.0) 08/08/19 14:50 Calcium 9.0 mg/dL (8.5-10.1) 08/10/19 05:45 Phosphorus 4.6 mg/dL (2.5-4.9) 08/10/19 05:45 Magnesium 2.1 mg/dL (1.8-2.4) 08/10/19 05:45 Total Bilirubin 0.7 mg/dL (0.2-1) 08/10/19 05:45 AST 17 U/L (15-37) 08/10/19 05:45 ALT 10 U/L (13-61) L 08/10/19 05:45 Alkaline Phosphatase 169 U/L (45-117) H 08/10/19 05:45 Troponin I < 0.02 ng/ml (0.00-0.05) 08/08/19 14:50 B-Natriuretic Peptide 00255.5 pg/ml (5-125) H 08/08/19 07:55 Total Protein 6.8 g/dl (6.4-8.2) 08/10/19 05:45 Albumin 2.8 g/dl (3.4-5.0) L 08/10/19 05:45 Triglycerides 78 mg/dL (0-150) 08/08/19 14:50 Cholesterol 83 mg/dL (50-200) 08/08/19 14:50 Total LDL Cholesterol 34 mg/dL (5-100) 08/08/19 14:50 HDL Cholesterol 41 mg/dL (40-60) 08/08/19 14:50 Lipase 144 U/L (73-393) 08/08/19 14:50 TSH 1.45 uIU/ml (0.358-3.74) 08/08/19 14:50 alk phos has been mildly elevated INR, PTT INR 1.21 (0.83-1.09) H 08/08/19 14:50 Microbiology 08/08/19 08:55 Blood Culture - Preliminary Blood - Peripheral Venous NO GROWTH OBTAINED AFTER 48 HOURS, INCUBATION TO CONTINUE FOR 3 DAYS. 08/08/19 08:55 Blood Culture - Preliminary Blood - Peripheral Venous NO GROWTH OBTAINED AFTER 48 HOURS, INCUBATION TO CONTINUE FOR 3 DAYS. no stool collected, no diarrhea observed by nursing Imaging - Results Cat Scan: Report Reviewed, Image Reviewed (tiny gallstones, no ductal dilation or pericholecystic fluid; pancreas with calcifications between body and tail with lobulated contour, diverticulosis without diverticulitis, renal cysts, no obstruction/free air/free fluid; healing R 8th rib fracture lateral arch; IVC filter) Ultrasound: Report Reviewed, Image Reviewed (ER POCUS and radiology studies: ER showed gallstones, thickened wall, Solis's, cbd 8mm; radiology showed gallstones, ??thickened wall - 4.5mm noted, states not thickened in body/ thickened in impression; no ductal dilation, no pericholecystic fluid) Problem List - Problems (1) Calculus of gallbladder without cholecystitis without obstruction Assessment/Plan: cholelithiasis without clear evidence of cholecystitis doubt primary biliary source of symptoms tolerated meal without pain or nausea not clearly tender no left-shift, no leukocytosis would continue renal diet as tolerated pt on asa/plavix, recent stroke on abx per ID no acute surgical issue identified will sign off - please re-call with questions as needed Thank you for the opportunity to participate in the care of this patient. This patient is critically ill. Time spent reviewing chart, examining patient, talking with providers and/or family and documentation is 60 minutes. Code(s): K80.20 - CALCULUS OF GALLBLADDER W/O CHOLECYSTITIS W/O OBSTRUCTION (2) RLQ abdominal pain Assessment/Plan: not clearly present at this time no clear tenderness in any quadrant mild bilateral CVA tenderness? right sided discomfort could be due to healing rib fracture? Code(s): R10.31 - RIGHT LOWER QUADRANT PAIN (3) Diarrhea Assessment/Plan: initially treated for C. diff no sample ever obtainable unclear history - pt changes story no observed diarrhea since admission po Vanco stopped by ID Code(s): R19.7 - DIARRHEA, UNSPECIFIED Qualifiers: Diarrhea type: presumed infectious Qualified Code(s): R19.7 - Diarrhea, unspecified (4) ESRD (end stage renal disease) on dialysis Assessment/Plan: HD TTS per renal Code(s): N18.6 - END STAGE RENAL DISEASE; Z99.2 - DEPENDENCE ON RENAL DIALYSIS (5) Obesity Code(s): E66.9 - OBESITY, UNSPECIFIED Qualifiers: Obesity type: unspecified obesity type Obesity classification: adult class 2 (BMI 35 - 39.9) Serious obesity comorbidity presence: without serious comorbidity Body mass index: BMI 36.0-36.9 Qualified Code(s): E66.9 - Obesity, unspecified; Z68.36 - Body mass index (BMI) 36.0-36.9, adult (6) Hypertension Code(s): I10 - ESSENTIAL (PRIMARY) HYPERTENSION Qualifiers: Hypertension type: essential hypertension Qualified Code(s): I10 - Essential (primary) hypertension (7) H/O: CVA (cerebrovascular accident) Assessment/Plan: recent/in May, on asa/plavix Code(s): Z86.73 - PRSNL HX OF TIA (TIA), AND CEREB INFRC W/O RESID DEFICITS
--- NOTE | 2019-08-10 10:51 | PN ---
Teaching Attending Note Name of Resident: Na Palacio ATTENDING PHYSICIAN STATEMENT I saw and evaluated the patient. I reviewed the resident's note and discussed the case with the resident. I agree with the resident's findings and plan as documented. SUBJECTIVE: Patient seen and examined in the ICU. Awake and alert. Denies CP or SOB. Currently off pressors. No acute events overnight. Intake & Output 08/07/19 08/08/19 08/09/19 08/10/19 23:59 23:59 23:59 23:59 Intake Total 575 704.1 250 Output Total 3000 0 0 Balance -2425 704.1 250 Weight 187 lb Last Vital Signs Temp Pulse Resp BP Pulse Ox 99.1 F 88 20 118/56 L 97 08/10/19 06:00 08/10/19 09:39 08/10/19 09:39 08/10/19 09:39 08/09/19 21:58 Active Medications Albuterol/Ipratropium (Duoneb -) 1 amp NEB RTID [facility] Last Admin: 08/10/19 07:40 Dose: 1 amp Aspirin (Ecotrin -) 81 mg PO DAILY [facility] Last Admin: 08/10/19 09:25 Dose: 81 mg Budesonide/Formoterol Fumarate (Symbicort 80/4.5mcg -) 2 puff IH BID [facility] Last Admin: 08/10/19 09:26 Dose: 2 puff Clopidogrel Bisulfate (Plavix -) 75 mg PO DAILY [facility] Last Admin: 08/10/19 09:26 Dose: 75 mg Heparin Sodium (Porcine) (Heparin -) 5,000 unit SQ TID [facility] Last Admin: 08/10/19 06:50 Dose: 5,000 unit Norepinephrine Bitartrate 8, (000 mcg/ Dextrose) 500 mls @ 18.75 mls/hr IV TITR [facility]; Protocol Last Admin: 08/09/19 10:21 Dose: Not Given Sodium Chloride (Normal Saline -) 250 mls @ 3,000 mls/hr IV PRN PRN PRN Reason: Hypotension during Dialysis Stop: 08/09/19 10:22 Metronidazole (Flagyl 500mg Premixed Ivpb -) 500 mg in 100 mls @ 100 mls/hr IVPB Q8H-IV [facility] Last Admin: 08/10/19 09:26 Dose: 100 mls/hr Aztreonam 0.5 gm/ Dextrose 50 mls @ 100 mls/hr IVPB Q12H [facility]; Protocol Last Admin: 08/09/19 23:58 Dose: 100 mls/hr Montelukast Sodium (Singulair -) 10 mg PO HS [facility] Last Admin: 08/09/19 21:14 Dose: 10 mg Nystatin (Mycostatin Cream -) 1 applic TP BID [facility] Last Admin: 08/10/19 09:26 Dose: 1 applic Exam: General: awake and alert, NAD HEENT: PERRL CV: S1S2 Pulm: Scattered basilar rhonchi, (-) wheeze Abd: obese, (+) tenderness to palpation RUQ, (+) BS Ext: WWP, (+)1 edema Neuro: Non-focal Laboratory Results - last 24 hr 08/10/19 08/10/19 08/10/19 05:45 05:45 09:01 WBC 8.2 RBC 3.72 Hgb 11.3 Hct 35.9 MCV 96.4 H MCH 30.4 MCHC 31.6 L RDW 16.0 H Plt Count 165 MPV 8.7 Absolute Neuts (auto) 4.6 Neutrophils % 56.3 Lymphocytes % 12.0 Monocytes % 14.0 H Eosinophils % 16.8 H Basophils % 0.9 Nucleated RBC % 0 Sodium 139 Potassium 4.2 Chloride 101 Carbon Dioxide 30 Anion Gap 8 BUN 26.3 H Creatinine 7.0 H Est GFR (CKD-EPI)AfAm 6.70 Est GFR (CKD-EPI)NonAf 5.78 POC Glucometer 130 Random Glucose 47 L* Calcium 9.0 Phosphorus 4.6 Magnesium 2.1 Total Bilirubin 0.7 AST 17 ALT 10 L Alkaline Phosphatase 169 H Total Protein 6.8 Albumin 2.8 L Assessment/Plan ASSESS: -COPD -HTN -HL -CHF -ESRD ON HD TTS -DM -CVA -[place] (in 2K15) w/ stents PLAN: -Monitor off pressors -Supp FiO2 for an SpO2 > 92% -Nebs -HD per Renal -NIPPV if patient allows -Hold all anti-HTN meds -ABX per ID -Surgical evaluation -ASA & Plavix -DC CVC -Glycemic control -Normal transfusion thresholds -Floor Dr Oneal
--- NOTE | 2019-08-10 10:55 | PN ---
Progress Note, Physician History of Present Illness: Ms. Perales is a [id number]-year-old black female with PM history of end-stage renal disease-->hemodialysis Saturday, hypertension, diabetes, COPD/bronchial asthma, obesity, sedentary lifestyle, here today complaining of cough and not feeling well. pt has been feeling sob, and c/o chest pain. call EMS today, felt too unwell to go to dialysis. on EMS arrival, pt was given 4 asa 81mg. States she has had a cough; also c/o subjective fever and chills. no leg swelling. Pt says she has fainted "many times" over the years, including at least 3 times this year; she says in February, she fainted and fell off the bed, breaking some ribs. Pt presently lives in a usp; transport is provided her to go to hemodialysis (last dialysis was ). - Current Medication List Current Medications: Active Medications Albuterol/Ipratropium (Duoneb -) 1 amp NEB RTID [facility] Last Admin: 08/10/19 07:40 Dose: 1 amp Aspirin (Ecotrin -) 81 mg PO DAILY [facility] Last Admin: 08/10/19 09:25 Dose: 81 mg Budesonide/Formoterol Fumarate (Symbicort 80/4.5mcg -) 2 puff IH BID [facility] Last Admin: 08/10/19 09:26 Dose: 2 puff Clopidogrel Bisulfate (Plavix -) 75 mg PO DAILY [facility] Last Admin: 08/10/19 09:26 Dose: 75 mg Heparin Sodium (Porcine) (Heparin -) 5,000 unit SQ TID [facility] Last Admin: 08/10/19 06:50 Dose: 5,000 unit Norepinephrine Bitartrate 8, (000 mcg/ Dextrose) 500 mls @ 18.75 mls/hr IV TITR [facility]; Protocol Last Admin: 08/09/19 10:21 Dose: Not Given Sodium Chloride (Normal Saline -) 250 mls @ 3,000 mls/hr IV PRN PRN PRN Reason: Hypotension during Dialysis Stop: 08/09/19 10:22 Metronidazole (Flagyl 500mg Premixed Ivpb -) 500 mg in 100 mls @ 100 mls/hr IVPB Q8H-IV [facility] Last Admin: 08/10/19 09:26 Dose: 100 mls/hr Aztreonam 0.5 gm/ Dextrose 50 mls @ 100 mls/hr IVPB Q12H [facility]; Protocol Last Admin: 08/09/19 23:58 Dose: 100 mls/hr Montelukast Sodium (Singulair -) 10 mg PO HS [facility] Last Admin: 08/09/19 21:14 Dose: 10 mg Nystatin (Mycostatin Cream -) 1 applic TP BID [facility] Last Admin: 08/10/19 09:26 Dose: 1 applic - Objective Vital Signs: Vital Signs Temperature 99.1 F 08/10/19 06:00 Pulse Rate 88 08/10/19 09:39 Respiratory Rate 20 08/10/19 09:39 Blood Pressure 118/56 L 08/10/19 09:39 O2 Sat by Pulse Oximetry (%) 97 08/09/19 21:58 Eyes: Yes: WNL, Conjunctiva Clear, EOM Intact HENT: Yes: WNL, Atraumatic, Normocephalic Neck: Yes: WNL, Supple, Trachea Midline Cardiovascular: Yes: WNL, Regular Rate and Rhythm Respiratory: Yes: WNL, Regular, CTA Bilaterally Gastrointestinal: Yes: WNL, Normal Bowel Sounds Genitourinary: Yes: WNL Musculoskeletal: Yes: WNL Extremities: Yes: WNL Edema: No Integumentary: Yes: WNL Neurological: Yes: WNL, Alert, Oriented ...Motor Strength: WNL Psychiatric: Yes: WNL Labs: CBC, BMP 08/10/19 05:45 08/10/19 05:45 INR, PTT INR 1.21 (0.83-1.09) H 08/08/19 14:50 Assessment/Plan - Problems (1) Sleep apnea Assessment/Plan: sleep studies, if not already done. Code(s): G47.30 - SLEEP APNEA, UNSPECIFIED (2) Obesity Code(s): E66.9 - OBESITY, UNSPECIFIED (3) Hyperlipidemia Code(s): E78.5 - HYPERLIPIDEMIA, UNSPECIFIED (4) ESRD (end stage renal disease) on dialysis Assessment/Plan: f/u with spirits model; continue hemodialysis schedule. Code(s): N18.6 - END STAGE RENAL DISEASE; Z99.2 - DEPENDENCE ON RENAL DIALYSIS (5) Cholelithiasis Assessment/Plan: US: stones. r/o cholecystitis workup in progress Code(s): K80.20 - CALCULUS OF GALLBLADDER W/O CHOLECYSTITIS W/O OBSTRUCTION (6) Acute on chronic diastolic (congestive) heart failure Assessment/Plan: +JVD; wheezing; congestive changes on CXR TNI < 0.02; f/u serially. On norepinephrine for low BP. For repeat hemodialysis per spirits model. F/u EKG, telemetry: NSR, periods of 1st degree AVB,sinus arrhythmia with periods of wide-complex tachycardia, Code(s): I50.33 - ACUTE ON CHRONIC DIASTOLIC (CONGESTIVE) HEART FAILURE (7) Cardiac arrhythmia Assessment/Plan: EKG: sinus rhythm with sinus arrhythmia; frequent PVCs, with runs of slow wide- complex beats. No chest verma. F/u on telemetry: for hemodialysis. Taper off norepinephrine as BP improves. F/u ECHO for LVEF, chamber sizes, regional wall motion, valve status. F/u prior workup regarding CAD, arrhythmia. Code(s): I49.9 - CARDIAC ARRHYTHMIA, UNSPECIFIED Assessment/Plan CCU time spent: 40 minutes.
--- NOTE | 2019-08-10 11:51 | PN ---
Physical Exam: SUBJECTIVE: Patient seen and examined, sitting upright in chair. Patient states she feels well but did not wish to comply with full physical exam. No acute events overnight. Satting well on 2L NC. Ambulating well. OBJECTIVE: Vital Signs Period Temp Pulse Resp BP Sys/[place]arro Pulse Ox Last 24 Hr 98.2 F-99.1 F 76-104 20-27 93-122/56-88 97-98 GENERAL: AOx3 NAD HEENT: PERRLA. EOMI. NCAT LUNGS: B/l basilar coarse breath sounds noted. No access muscle use. No incr work of breathing. HEART: RRR S1S2 heard no murmurs. ABDOMEN: Soft. TTP RUQ. Would not permit [place] exam. EXTREMITIES: 2+ pulses, warm, well-perfused, no edema. NEUROLOGICAL: Unable to assess SKIN: Warm, dry Laboratory Results - last 24 hr 08/10/19 08/10/19 08/10/19 05:45 05:45 09:01 WBC 8.2 RBC 3.72 Hgb 11.3 Hct 35.9 MCV 96.4 H MCH 30.4 MCHC 31.6 L RDW 16.0 H Plt Count 165 MPV 8.7 Absolute Neuts (auto) 4.6 Neutrophils % 56.3 Lymphocytes % 12.0 Monocytes % 14.0 H Eosinophils % 16.8 H Basophils % 0.9 Nucleated RBC % 0 Sodium 139 Potassium 4.2 Chloride 101 Carbon Dioxide 30 Anion Gap 8 BUN 26.3 H Creatinine 7.0 H Est GFR (CKD-EPI)AfAm 6.70 Est GFR (CKD-EPI)NonAf 5.78 POC Glucometer 130 Random Glucose 47 L* Calcium 9.0 Phosphorus 4.6 Magnesium 2.1 Total Bilirubin 0.7 AST 17 ALT 10 L Alkaline Phosphatase 169 H Total Protein 6.8 Albumin 2.8 L Active Medications Generic Name Dose Route Start Last Admin Trade Name Freq PRN Reason Stop Dose Admin Albuterol/Ipratropium 1 amp 08/08/19 20:00 08/10/19 07:40 Duoneb - NEB 1 amp RTID [facility] Administration Aspirin 81 mg 08/09/19 10:00 08/10/19 09:25 Ecotrin - PO 81 mg DAILY [facility] Administration Budesonide/Formoterol Fumarate 2 puff 08/08/19 22:00 08/10/19 09:26 Symbicort 80/4.5mcg - IH 2 puff BID [facility] Administration Clopidogrel Bisulfate 75 mg 08/09/19 10:00 08/10/19 09:26 Plavix - PO 75 mg DAILY [facility] Administration Heparin Sodium (Porcine) 5,000 unit 08/08/19 22:00 08/10/19 06:50 Heparin - SQ 5,000 unit TID [facility] Administration Norepinephrine Bitartrate 8, 500 mls @ 18.75 mls/hr 08/08/19 09:45 08/09/19 10:21 000 mcg/ Dextrose IV Not Given TITR [facility] Protocol 5 MCG/MIN Sodium Chloride 250 mls @ 3,000 mls/hr 08/08/19 10:22 Normal Saline - IV 08/09/19 10:22 PRN PRN Hypotension during Dialysis Metronidazole 500 mg in 100 mls @ 100 mls/hr 08/09/19 03:30 08/10/19 09:26 Flagyl 500mg Premixed Ivpb - IVPB 100 mls/hr Q8H-IV [facility] Administration Aztreonam 0.5 gm/ Dextrose 50 mls @ 100 mls/hr 08/09/19 11:27 08/09/19 23:58 IVPB 100 mls/hr Q12H [facility] Administration Protocol Montelukast Sodium 10 mg 08/09/19 10:00 08/09/19 21:14 Singulair - PO 10 mg HS [facility] Administration Nystatin 1 applic 08/08/19 22:00 08/10/19 09:26 Mycostatin Cream - TP 1 applic BID [facility] Administration ASSESSMENT/PLAN: 63 y.o. F PMH HTN, HLD, CAD s/p 2 stents, CVA (05/2019), COPD, asthma, ESRD on HD () presenting for abdominal & chest pain, diarrhea. #Neuro -AOx3 NAD #CV -Cardio on board (Dr. Akhtar) -F/u echo -Records requested from [facility] from recent hospitalization & cardiac history -C/w daily aspirin, plavix; holding home HTN meds -Off pressors -Central line d/c'd #RESP -Satting well 2L NC -Congestive changes seen on CXR #GI -Abd U/S showed cholelithiasis & sludge w/ GB thickening. No signs of cholecystitis. -C/w aztreonam, flagyl -S/p 2 doses vanc -Denies further episodes diarrhea -Surgery recs appreciated (Dr. Weir) #RENAL -Nephro following (Dr. Galvan) -ESRD on hemodialysis () -BUN/Cr 29/7.3 #ENDO -DM, diet controlled -BGMs -A1c 4.8% # -Voiding freely #FEN -IVF: NS prior to dialysis -Monitor lytes -HD tomorrow -Renal diet #PROPHYLAXIS -Heparin SQ #DISPO -Med surg Visit type - Emergency Visit Emergency Visit: No - New Patient This patient is new to me today: Yes Date on this admission: 08/10/19 - Critical Care Critical Care patient: Yes Total Critical Care Time (in minutes): 36 Critical Care Statement: The care of this patient involved high complexity decision making to prevent further life threatening deterioration of the patient 's condition and/or to evaluate & treat vital organ system(s) failure or risk of failure. ATTENDING PHYSICIAN STATEMENT I saw and evaluated the patient. I reviewed the resident's note and discussed the case with the resident. I agree with the resident's findings and plan as documented. SUBJECTIVE: OBJECTIVE: ASSESSMENT AND PLAN:
--- NOTE | 2019-08-10 12:14 | PN ---
Progress Note, Physician Chief Complaint: Events noted Not in distress History of Present Illness: Patient was seen and examined. Sitting. Chart was reviewed Denies chest pain or SOB - Current Medication List Current Medications: Active Medications Albuterol/Ipratropium (Duoneb -) 1 amp NEB RTID [facility] Last Admin: 08/10/19 07:40 Dose: 1 amp Aspirin (Ecotrin -) 81 mg PO DAILY [facility] Last Admin: 08/10/19 09:25 Dose: 81 mg Budesonide/Formoterol Fumarate (Symbicort 80/4.5mcg -) 2 puff IH BID [facility] Last Admin: 08/10/19 09:26 Dose: 2 puff Clopidogrel Bisulfate (Plavix -) 75 mg PO DAILY [facility] Last Admin: 08/10/19 09:26 Dose: 75 mg Heparin Sodium (Porcine) (Heparin -) 5,000 unit SQ TID [facility] Last Admin: 08/10/19 06:50 Dose: 5,000 unit Norepinephrine Bitartrate 8, (000 mcg/ Dextrose) 500 mls @ 18.75 mls/hr IV TITR [facility]; Protocol Last Admin: 08/09/19 10:21 Dose: Not Given Sodium Chloride (Normal Saline -) 250 mls @ 3,000 mls/hr IV PRN PRN PRN Reason: Hypotension during Dialysis Stop: 08/09/19 10:22 Metronidazole (Flagyl 500mg Premixed Ivpb -) 500 mg in 100 mls @ 100 mls/hr IVPB Q8H-IV [facility] Last Admin: 08/10/19 09:26 Dose: 100 mls/hr Aztreonam 0.5 gm/ Dextrose 50 mls @ 100 mls/hr IVPB Q12H [facility]; Protocol Last Admin: 08/09/19 23:58 Dose: 100 mls/hr Montelukast Sodium (Singulair -) 10 mg PO HS [facility] Last Admin: 08/09/19 21:14 Dose: 10 mg Nystatin (Mycostatin Cream -) 1 applic TP BID [facility] Last Admin: 08/10/19 09:26 Dose: 1 applic - Objective Vital Signs: Vital Signs Temperature 99.1 F 08/10/19 06:00 Pulse Rate 88 08/10/19 09:39 Respiratory Rate 20 08/10/19 09:39 Blood Pressure 118/56 L 08/10/19 09:39 O2 Sat by Pulse Oximetry (%) 97 08/09/19 21:58 Neck: Yes: Supple Cardiovascular: Yes: Regular Rate and Rhythm, S1, S2 Respiratory: Yes: Rhonchi Gastrointestinal: Yes: Normal Bowel Sounds, Soft. No: Tenderness Edema: No Labs: CBC, BMP 08/10/19 05:45 08/10/19 05:45 INR, PTT INR 1.21 (0.83-1.09) H 08/08/19 14:50 Problem List - Problems (1) Acute on chronic diastolic (congestive) heart failure Code(s): I50.33 - ACUTE ON CHRONIC DIASTOLIC (CONGESTIVE) HEART FAILURE (2) Calculus of gallbladder without cholecystitis without obstruction Code(s): K80.20 - CALCULUS OF GALLBLADDER W/O CHOLECYSTITIS W/O OBSTRUCTION (3) Cardiac arrhythmia Code(s): I49.9 - CARDIAC ARRHYTHMIA, UNSPECIFIED (4) Cholelithiasis Code(s): K80.20 - CALCULUS OF GALLBLADDER W/O CHOLECYSTITIS W/O OBSTRUCTION (5) ESRD (end stage renal disease) on dialysis Code(s): N18.6 - END STAGE RENAL DISEASE; Z99.2 - DEPENDENCE ON RENAL DIALYSIS (6) Fluid overload Code(s): E87.70 - FLUID OVERLOAD, UNSPECIFIED (7) H/O: CVA (cerebrovascular accident) Code(s): Z86.73 - PRSNL HX OF TIA (TIA), AND CEREB INFRC W/O RESID DEFICITS (8) Hyperlipidemia Code(s): E78.5 - HYPERLIPIDEMIA, UNSPECIFIED (9) Hypertension Code(s): I10 - ESSENTIAL (PRIMARY) HYPERTENSION Qualifiers: Hypertension type: essential hypertension Qualified Code(s): I10 - Essential (primary) hypertension (10) Hypotension Code(s): I95.9 - HYPOTENSION, UNSPECIFIED (11) Sleep apnea Code(s): G47.30 - SLEEP APNEA, UNSPECIFIED Assessment/Plan 1. Class I-II NYHA classification acute on chronic diastolic heart failure 2. Coronary artery disease angina pectoris 3. HTN/HCVD with transient hypotension 4. Hypercholesterolemia 5. Cardiac dysrhythmia, frequent premature supraventricular and ventricular contractions 6. AMANDA 7. ESRD - HD PLAN: 1. Ecotrin and Plavix with caution 2. Continue Lipitor 3. Addition of beta-marcus therapy unless contraindicated 4. Addition of SHARMIN inhibitor or angiotensin receptor marcus therapy unless contraindicated, once hemodynamic stability is achieved 5. Echocardiography for evaluation of left ventricular systolic function and valvular function 6. Hemodialysis as per renal service Priyank Tinoco MD
[2019-08-10] MEDS: AZTREONAM 0.5 GM in DEXTROSE 5%-WATER - 50 ML IVPB SCH (13:00)
--- NOTE | 2019-08-10 13:47 | PN ---
Progress Note, Physician History of Present Illness: Pt seen and examined at bedside. She is awake and appears comfortable. - Current Medication List Current Medications: Active Medications Albuterol/Ipratropium (Duoneb -) 1 amp NEB RTID [facility] Last Admin: 08/10/19 07:40 Dose: 1 amp Aspirin (Ecotrin -) 81 mg PO DAILY [facility] Last Admin: 08/10/19 09:25 Dose: 81 mg Budesonide/Formoterol Fumarate (Symbicort 80/4.5mcg -) 2 puff IH BID [facility] Last Admin: 08/10/19 09:26 Dose: 2 puff Clopidogrel Bisulfate (Plavix -) 75 mg PO DAILY [facility] Last Admin: 08/10/19 09:26 Dose: 75 mg Heparin Sodium (Porcine) (Heparin -) 5,000 unit SQ TID [facility] Last Admin: 08/10/19 06:50 Dose: 5,000 unit Sodium Chloride (Normal Saline -) 250 mls @ 3,000 mls/hr IV PRN PRN PRN Reason: Hypotension during Dialysis Stop: 08/09/19 10:22 Metronidazole (Flagyl 500mg Premixed Ivpb -) 500 mg in 100 mls @ 100 mls/hr IVPB Q8H-IV [facility] Last Admin: 08/10/19 09:26 Dose: 100 mls/hr Aztreonam 0.5 gm/ Dextrose 50 mls @ 100 mls/hr IVPB Q12H [facility]; Protocol Last Admin: 08/09/19 23:58 Dose: 100 mls/hr Montelukast Sodium (Singulair -) 10 mg PO HS [facility] Last Admin: 08/09/19 21:14 Dose: 10 mg Nystatin (Mycostatin Cream -) 1 applic TP BID [facility] Last Admin: 08/10/19 09:26 Dose: 1 applic - Objective Vital Signs: Vital Signs Temperature 99.1 F 08/10/19 06:00 Pulse Rate 88 08/10/19 09:39 Respiratory Rate 20 08/10/19 09:39 Blood Pressure 118/56 L 08/10/19 09:39 O2 Sat by Pulse Oximetry (%) 97 08/09/19 21:58 Constitutional: Yes: Calm Eyes: Yes: Conjunctiva Clear HENT: Yes: Atraumatic Cardiovascular: Yes: S1, S2 Respiratory: Yes: CTA Bilaterally Gastrointestinal: Yes: Soft Genitourinary: Yes: WNL Musculoskeletal: Yes: WNL Edema: Yes Edema: LLE: 1+, RLE: 1+ Neurological: Yes: Oriented Psychiatric: Yes: Oriented Labs: CBC, BMP 08/10/19 05:45 08/10/19 05:45 INR, PTT INR 1.21 (0.83-1.09) H 08/08/19 14:50 Problem List - Problems (1) ESRD (end stage renal disease) on dialysis Code(s): N18.6 - END STAGE RENAL DISEASE; Z99.2 - DEPENDENCE ON RENAL DIALYSIS (2) Fluid overload Code(s): E87.70 - FLUID OVERLOAD, UNSPECIFIED Assessment/Plan Current Medications Generic Name Dose Route Start Last Admin Trade Name Freq PRN Reason Stop Dose Admin Albuterol/Ipratropium 1 amp 08/08/19 20:00 08/10/19 07:40 Duoneb - NEB 1 amp RTID [facility] Administration Aspirin 81 mg 08/09/19 10:00 08/10/19 09:25 Ecotrin - PO 81 mg DAILY [facility] Administration Budesonide/Formoterol Fumarate 2 puff 08/08/19 22:00 08/10/19 09:26 Symbicort 80/4.5mcg - IH 2 puff BID [facility] Administration Clopidogrel Bisulfate 75 mg 08/09/19 10:00 08/10/19 09:26 Plavix - PO 75 mg DAILY [facility] Administration Heparin Sodium (Porcine) 5,000 unit 08/08/19 22:00 08/10/19 06:50 Heparin - SQ 5,000 unit TID [facility] Administration Sodium Chloride 250 mls @ 3,000 mls/hr 08/08/19 10:22 Normal Saline - IV 08/09/19 10:22 PRN PRN Hypotension during Dialysis Metronidazole 500 mg in 100 mls @ 100 mls/hr 08/09/19 03:30 08/10/19 09:26 Flagyl 500mg Premixed Ivpb - IVPB 100 mls/hr Q8H-IV [facility] Administration Aztreonam 0.5 gm/ Dextrose 50 mls @ 100 mls/hr 08/09/19 11:27 08/09/19 23:58 IVPB 100 mls/hr Q12H [facility] Administration Protocol Montelukast Sodium 10 mg 08/09/19 10:00 08/09/19 21:14 Singulair - PO 10 mg HS [facility] Administration Nystatin 1 applic 08/08/19 22:00 08/10/19 09:26 Mycostatin Cream - TP 1 applic BID [facility] Administration Impression 1. esrd 2. fluid overload 3. hypotension 4. abd pain 5. copd 6. nicotine use 7. cad 8. cva Plan - HD tomorrow - pt tolerating diet - cont renal diet - potassium stable
[2019-08-10] MEDS ORDERED: SODIUM CHLORIDE 250 ML IV PRN (13:48)
--- NOTE | 2019-08-10 15:03 | CONS ---
INFECTIOUS DISEASE CONSULTATION DATE OF CONSULTATION: 08/09/2019 HISTORY: This is a 63-year-old woman who was admitted on the through the emergency room. She has end-stage renal disease. She is on dialysis. She comes to the ER complaining of chest pain, abdominal pain. She was just discharged after 24-hour admission at [facility] that she said was also for the same abdominal pain. She is on dialysis at [facility]. She was noted in the ER to have hypotension. She needed a central line and pressors, and she was sent to the ICU. She has a past history of end-stage renal disease. She is on dialysis. She has a history of hypertension, hyperlipidemia, coronary artery disease, CVA, COPD, asthma, CHF, and diet-controlled diabetes. SURGICAL HISTORY: Notable for dialysis access on her left arm. She denies any other surgical procedures. She is followed at [facility]. SOCIAL HISTORY: She is currently in a [facility] for the last 2 months. Smokes 2 cigarettes per day. Denies alcohol or substance use. ALLERGIES: She is allergic to PEANUTS. MEDICATIONS: As an outpatient include albuterol inhaler, aspirin, atorvastatin, Symbicort inhaler, Plavix, vitamin B12, fluticasone, folic acid, gabapentin, Isordil, lisinopril, metoprolol, Singulair, Senna REVIEW OF SYSTEMS: She is a very poor historian and currently has no complaints. Overnight, she complained of abdominal pain and was found to have preliminary report for possible cholecystitis, and I am asked to see her for antibiotic management. Ultrasound report is pending. PHYSICAL EXAMINATION: General: She is awake but she falls asleep easily. Vital Signs: Temperature is 98.3, BP is116/87, respiratory rate is 24. She is saturating 96% on 3 L. Her heart rate is 88. HEENT: She is normocephalic. Her eyes are anicteric. Neck: Supple. Lungs: Diminished breath sounds at the bases. Heart: Regular rate and rhythm. Abdomen: Soft. She has some mild midepigastric and right upper quadrant discomfort. Extremities: Without edema. She had a CAT scan in the ER that showed cardiomegaly, mild bibasilar atelectatic changes, tiny gallstones, bilateral renal cysts, an IVC filter. No diverticulitis. Vascular calcifications of the pancreas. Her labs are notable for a white count of 8.2, hemoglobin 11.3, platelets are 191. Chemistries; BUN and creatinine are elevated at BUN 17 and creatinine 5.3. Her LFTs are notable for alkaline phosphatase of 189. Influenza screen is negative. She has a PENICILLIN allergy manifested by hives. In summary, this is a 63-year-old woman on dialysis, reported diarrhea that has stopped, some chronic right upper quadrant pain, PENICILLIN allergy manifested by hives with a possible acute cholecystitis on ultrasound report. She was started on Azactam and Flagyl, which I will continue at this time. Add 1 dose of vancomycin for gram-positive coverage and await surgical opinion. Further recommendations to follow. Case was discussed with the hospitalist. PIYUSH SANTA M.D. [id number] MTDD
--- NOTE | 2019-08-10 16:18 | PN ---
Teaching Attending Note Name of Resident: Sanford Estrada ATTENDING PHYSICIAN STATEMENT I saw and evaluated the patient. I reviewed the resident's note and discussed the case with the resident. I agree with the resident's findings and plan as documented. SUBJECTIVE: no painin abd this am . no diarrhea. no ARAIZA . no CP or SOB . she feels better today OBJECTIVE: NAD, awake, alert, cooperative .MMM, no JVD CV: RRR, no MRG Lungs: decreased breath soudns at bases Abd: minimal generalized tenderness in all quadrants. especially in RUQ. Nl BS Ext: 1+ edema on LE. ASSESSMENT AND PLAN: 63 y/o lady with h/o ESRD on HD TTS, HTN, HLP, CVA, AR in 2014, s/p stents, CVA , COPd, CHF, DM, and other medical problems who presented with SOB , CP, diarrhea and fevers. she developed hypotension in ER and was found to have fluid overload . 1- Pulmonary edema, due to acute heart failure and ESRD. - tele reviewed. wide complex tachycardia events are not observed today - echo pending - volme mgt with HD 2- CP: resolved - Echo pending. - ? stress test when stable. 3- Abd pain: US final read with no signs fo cholesytitis. patient was not cooperative with surgical evaluation - Will check HIDA - cont Abx for now. if neg HIDA , agree with stopping Abx - surgical eval pending 4- shock: resolved. ? hypovolemic Vs septic. - hold BP meds. - off pressors 5- H/o HTN: hold off imdur, lisinopril, and BB 6- H/o CAD, CVA: cont ASa and plavix 7- ESRD: HD TSS transfer to tele
[2019-08-10] MEDS ORDERED: CIPROFLOXACIN 400 MG/D5W 400 MG/200 ML IVPB IVPB ONE (16:42)
--- NOTE | 2019-08-10 17:30 | PN ---
Physical Exam: SUBJECTIVE: Patient seen and examined. Endorses improvement in right-sided chest pain. Still has complaint of diffuse mild abd pain. Denies diarrhea. OBJECTIVE: Vital Signs Period Temp Pulse Resp BP Sys/[place] Pulse Ox Last 24 Hr 98.2 F-99.1 F 76-108 20-27 91-122/52-78 97-98 GENERAL: Mildly somnolent but arousable, alert, and fully oriented, in no acute distress. Obese EYES: sclera anicteric, conjunctiva clear. No lid lag. EARS, NOSE, THROAT: Moist mucus membranes, edentulous. LUNGS: Rhonchi, basal crackles b/l HEART: S1 and S2 without murmur, rub or gallop. ABDOMEN: Obese, soft, generalized tenderness and TTP of RUQ with deep palpation MUSCULOSKELETAL: Tommy to move all extremities spontaneously UPPER EXTREMITIES: healed rashes on hands b/l LOWER EXTREMITIES: b/l peripheral nonpitting edema, thickened dark skin. NEUROLOGICAL: Edentulous speech difficult to comprehend. Ambulating without assistive device Laboratory Results - last 24 hr 08/08/19 08/10/19 08/10/19 15:40 05:45 05:45 WBC 8.2 RBC 3.72 Hgb 11.3 Hct 35.9 MCV 96.4 H MCH 30.4 MCHC 31.6 L RDW 16.0 H Plt Count 165 MPV 8.7 Absolute Neuts (auto) 4.6 Neutrophils % 56.3 Lymphocytes % 12.0 Monocytes % 14.0 H Eosinophils % 16.8 H Basophils % 0.9 Nucleated RBC % 0 Sodium 139 Potassium 4.2 Chloride 101 Carbon Dioxide 30 Anion Gap 8 BUN 26.3 H Creatinine 7.0 H Est GFR (CKD-EPI)AfAm 6.70 Est GFR (CKD-EPI)NonAf 5.78 POC Glucometer Random Glucose 47 L* Calcium 9.0 Phosphorus 4.6 Magnesium 2.1 Total Bilirubin 0.7 AST 17 ALT 10 L Alkaline Phosphatase 169 H Total Protein 6.8 Albumin 2.8 L Hep Bs Antigen Negative 08/10/19 08/10/19 08/10/19 09:01 12:19 12:43 WBC RBC Hgb Hct MCV MCH MCHC RDW Plt Count MPV Absolute Neuts (auto) Neutrophils % Lymphocytes % Monocytes % Eosinophils % Basophils % Nucleated RBC % Sodium Potassium Chloride Carbon Dioxide Anion Gap BUN Creatinine Est GFR (CKD-EPI)AfAm Est GFR (CKD-EPI)NonAf POC Glucometer 130 58 148 Random Glucose Calcium Phosphorus Magnesium Total Bilirubin AST ALT Alkaline Phosphatase Total Protein Albumin Hep Bs Antigen Active Medications Generic Name Dose Route Start Last Admin Trade Name Freq PRN Reason Stop Dose Admin Albuterol/Ipratropium 1 amp 08/10/19 20:00 Duoneb - NEB RTID [facility] Aspirin 81 mg 08/11/19 10:00 Ecotrin - PO DAILY [facility] Budesonide/Formoterol Fumarate 2 puff 08/10/19 22:00 Symbicort 80/4.5mcg - IH BID [facility] Clopidogrel Bisulfate 75 mg 08/11/19 10:00 Plavix - PO DAILY [facility] Heparin Sodium (Porcine) 5,000 unit 08/10/19 22:00 Heparin - SQ TID [facility] Sodium Chloride 250 mls @ 3,000 mls/hr 08/10/19 13:48 Normal Saline - IV 08/11/19 13:48 PRN PRN Hypotension during Dialysis Aztreonam 0.5 gm/ Dextrose 50 mls @ 100 mls/hr 08/10/19 23:27 IVPB Q12H [facility] Protocol Metronidazole 500 mg in 100 mls @ 100 mls/hr 08/10/19 18:00 Flagyl 500mg Premixed Ivpb - IVPB Q8H-IV [facility] Montelukast Sodium 10 mg 08/10/19 22:00 Singulair - PO HS [facility] Nystatin 1 applic 08/10/19 22:00 Mycostatin Cream - TP BID [facility] ASSESSMENT/PLAN: 63F with PMHx of HTN, HLD, CAD s/p 2 stents (2014), CVA (05/2019), COPD, asthma , nicotine use, ESRD on HD (T//), CHF, DM (diet controlled) presented with complaint of chest pain, abdominal pain, diarrhea. In ED, became hypotensive to 70s/40s prompting pressors(NE) via RIJ(failed) then Left femoral line. Admitted for presumptive septic shock 2/2 possible c diff. Initial BNP ~29,000 with hypercapnic respiratory failure. Lactic acid 2.4 initially, improved to 1.9. Weaned off NE after 1 day. HbA1c 4.8. Complaining of diffuse abd pain w/ TTP of RUQ. HIDA pending. #Septic shock --unknown etiology, possible ?Cdiff > lactic acid: 2.4 -->1.9 > Stool for Cdiff, o&P, stool cx --pending >UA not available- pt doesn't make urine - pressors: weaned off on 08/09/19 - abx regimen: -- ED: Received cipro/flagyl -- 1g aztreonam stat -- Consult ID: azactam, flagyl, vanco #Acute Pulmonary edema --likely 2/2 missed HD > BNP ~29,000 > CXR(08/08/19): cardiomegaly, pulmonary congestion - Consult Nephro: -- HD(Last 08/08/19): 3L out #Acute hypercapnic respiratory failure --improved, no supplemental O2 > VB.33/54.5/<49/28.1 - supplemental O2, PRN #Chest pain R/O ACS --Atypical chest pain, persisting for 1 week with no clear FIOR/TWI > neg troponins x2 > ECHO --pending > EKG- PVCs and 1st degree block > Tele: PVCs and SVTs - Consult Cardiology: -- fu Echo #CAD s/p 2 stents (2014) - Hold metoprolol #Abdominal pain R/O acute cholecystitis > CTAP(08/08/19): tiny GB stones, no evid of acute cholecystitis, b/l renal cysts, IVC filter in place, diverticulosis, vascular calcifications of pancreatic body + tail w/ rec for MRI w/ contrast > US RUQ(08/08/19): small GB stones + sludge, thickening of GB wall, neg pericholecystic fluid - Consult Surgery: -- pt refusing physical examination -- HIDA --pending #chronic essential HTN --not an active issue - Hold BP meds #Dyslipidemia - cw home Atorvastatin #CVA (05/2019) - Will hold BB, - cw plavix, ASA #COPD/asthma - cw montelukast - cw symbicort 80 - Cont nebs # ESRD on HD (//S)- - HD per Nephro(Dr crump) #DM- diet controlled > HbA1c 4.8 - no need for ISS #FEN: - NPO #DVT PPX: - SQHep - NPO till after abd US Full code Visit type - Emergency Visit Emergency Visit: No - New Patient This patient is new to me today: No - Critical Care Critical Care patient: No ATTENDING PHYSICIAN STATEMENT I saw and evaluated the patient. I reviewed the resident's note and discussed the case with the resident. I agree with the resident's findings and plan as documented. SUBJECTIVE: OBJECTIVE: ASSESSMENT AND PLAN:
[2019-08-10] MEDS ORDERED: DEXTROSE 50%-WATER - 25 GM/50 ML VIAL ONE (18:12)
[2019-08-10] MEDS: NOREPINEPHRINE BITARTRATE 8,000 MCG in DEXTROSE 5%-WATER - 492 ML IV SCH (20:21)
[2019-08-10] MEDS ORDERED: MONTELUKAST NA 10 MG TABLET PO SCH (22:00)
[2019-08-10] MEDS ORDERED: ATORVASTATIN CA 80 MG TABLET (FP) PO SCH (22:00)
[2019-08-11] MEDS ORDERED: DEXTROSE 10%-WATER - 1,000 ML IV SCH
[2019-08-11] MEDS ORDERED: PT OWN MED DRAWER 7, Y5N ONE (00:39)
[2019-08-11] MEDS: AZTREONAM 0.5 GM in DEXTROSE 5%-WATER - 50 ML IVPB SCH ×2 (00:42→12:20)
[2019-08-11] MEDS ORDERED: ALBUTEROL SO4 0.083% IH SOL 2.5 MG/3 ML VIAL.NEB. NEB ONE (05:45)
[2019-08-11] MEDS: HEPARIN NA (PORCINE) 5,000 UNITS/ML 1ML VIAL SQ SCH (07:00)
--- NOTE | 2019-08-11 07:10 | PN ---
Progress Note (short form) - Note Progress Note: Chief Complaint: Events noted, notes reviewed, denies any chest pain or dyspnea History of Present Illness: Seen and examined in the ICU. Events noted, notes reviewed, denies any chest pain or dyspnea - Current Medication List Current Medications Albuterol Sulfate (Ventolin 0.083% Nebulizer Soln -) 1 amp NEB ONCE ONE Stop: 08/11/19 05:46 Last Admin: 08/11/19 06:00 Dose: 1 amp Albuterol/Ipratropium (Duoneb -) 1 amp NEB RTID [facility] Last Admin: 08/10/19 21:25 Dose: 1 amp Aspirin (Ecotrin -) 81 mg PO DAILY [facility] Atorvastatin Calcium (Lipitor -) 80 mg PO HS [facility] Last Admin: 08/10/19 22:22 Dose: 80 mg Budesonide/Formoterol Fumarate (Symbicort 80/4.5mcg -) 2 puff IH BID [facility] Last Admin: 08/10/19 22:23 Dose: 2 puff Clopidogrel Bisulfate (Plavix -) 75 mg PO DAILY [facility] Heparin Sodium (Porcine) (Heparin -) 5,000 unit SQ TID [facility] Last Admin: 08/10/19 22:22 Dose: Not Given Sodium Chloride (Normal Saline -) 250 mls @ 3,000 mls/hr IV PRN PRN PRN Reason: Hypotension during Dialysis Stop: 08/11/19 13:48 Aztreonam 0.5 gm/ Dextrose 50 mls @ 100 mls/hr IVPB Q12H [facility]; Protocol Last Admin: 08/11/19 00:42 Dose: 100 mls/hr Metronidazole (Flagyl 500mg Premixed Ivpb -) 500 mg in 100 mls @ 100 mls/hr IVPB Q8H-IV [facility] Last Admin: 08/11/19 03:35 Dose: 100 mls/hr Dextrose (D10w -) 1,000 mls @ 42 mls/hr IV ASDIR [facility] Last Admin: 08/11/19 03:35 Dose: 42 mls/hr Montelukast Sodium (Singulair -) 10 mg PO HS [facility] Last Admin: 08/10/19 22:23 Dose: 10 mg Nystatin (Mycostatin Cream -) 1 applic TP BID [facility] Last Admin: 08/10/19 22:23 Dose: 1 applic Review of Systems Constitutional: denies: Chills or Fever Cardiovascular: as noted above Respiratory: denies: Cough or Sputum Production Gastrointestinal: denies: Nausea, Vomiting, Diarrhea, Constipation or Abdominal Pain Musculoskeletal: denies: Joint Pain Neurological: denies: Dizziness or Headache - Objective Vital Signs: Last Vital Signs Temp Pulse Resp BP Pulse Ox 97.9 F 88 20 115/69 97 08/11/19 02:00 08/11/19 05:00 08/11/19 05:00 08/11/19 05:00 08/10/19 19:46 Intake & Output 08/08/19 08/09/19 08/10/19 08/11/19 23:59 23:59 23:59 23:59 Intake Total 575 704.1 980 226 Output Total 3000 0 0 Balance -2425 704.1 980 226 Weight 187 lb 187 lb 185 lb 3.013 oz Neck: Supple Negative JVD No Bruit Respiratory: Scattered Rhonchi Bilaterally Cardiovascular: S1 S2 Regular Rate Rhythm Gastrointestinal: Soft Benign Normal Bowel Sounds Ext: Negative Edema Labs: CBC, BMP 08/10/19 05:45 08/10/19 05:45 Hepatic Panel Total Bilirubin 0.7 mg/dL (0.2-1) 08/10/19 05:45 AST 17 U/L (15-37) 08/10/19 05:45 ALT 10 U/L (13-61) L 08/10/19 05:45 Alkaline Phosphatase 169 U/L (45-117) H 08/10/19 05:45 Albumin 2.8 g/dl (3.4-5.0) L 08/10/19 05:45 INR, PTT INR 1.21 (0.83-1.09) H 08/08/19 14:50 ABG Results ABG pH Cancelled 08/08/19 10:45 ABG pCO2 at Pt Temp Cancelled 08/08/19 10:45 ABG pO2 at Pt Temp Cancelled 08/08/19 10:45 ABG HCO3 Cancelled 08/08/19 10:45 ABG O2 Sat (Measured) Cancelled 08/08/19 10:45 ABG O2 Content Cancelled 08/08/19 10:45 ABG Base Excess Cancelled 08/08/19 10:45 Assessment/Plan ASSESSMENT: 1. Clinical presentation is consistent with class I-II [place] [employer] classification acute on chronic diastolic congestive heart failure, clinically resolved 2. Coronary artery disease angina pectoris 3. Hypertensive cardiovascular disease, transient hypotension 4. Hypercholesterolemia 5. Cardiac dysrhythmia, frequent premature supraventricular and ventricular contractions 6. History of obstructive sleep apnea 7. End-stage renal disease hemodialysis dependent PLAN: 1. Continuation of Ecotrin and Plavix therapies with caution 2. Continuation of Lipitor therapy 3. Addition of beta-marcus therapy unless contraindicated, once hemodynamic stability is achieved 4. Addition of SHARMIN inhibitor or angiotensin receptor marcus therapy unless contraindicated, once hemodynamic stability is achieved 5. Echocardiography for evaluation of left ventricular systolic function and valvular function 6. Hemodialysis as per renal service Plan of care and management was discussed in detail with the patient Javier Hinojosa M.D. A
[2019-08-11] MEDS: ALBUTEROL SO4 2.5/IPRATROPIUM 0.5 INH SOL 3 ML VIAL.NEB. NEB SCH (07:20)
[2019-08-11 07:30] LABS: HEMATOCRIT 35.5 % (32.4-45.2); HEMOGLOBIN 11.3 GM/dL (10.7-15.3); MCH 30.6 pg (25.7-33.7); MCHC 31.7 g/dl (32.0-36.0); MEAN CELL VOLUME 96.5 fl (80-96); MEAN PLT VOLUME 8.5 fl (7.5-11.1); PLATELET COUNT 161 K/MM3 (134-434); RBC 3.68 M/mm3 (3.60-5.2); RDW 15.9 % (11.6-15.6); WHITE BLOOD COUNT 7.7 K/mm3 (4.0-10.0)
[2019-08-11 08:18] LABS: ALBUMIN 2.8 g/dl (3.4-5.0); BILIRUBIN,TOTAL 0.7 mg/dL (0.2-1); CALCIUM 8.7 mg/dL (8.5-10.1); MAGNESIUM 2.2 mg/dL (1.8-2.4); PHOSPHOROUS 4.1 mg/dL (2.5-4.9); POTASSIUM 4.1 mmol/L (3.5-5.1); TOT PROT 6.8 g/dl (6.4-8.2)
[2019-08-11 08:56] LABS: CREATININE 8.7 mg/dL (0.55-1.3)
[2019-08-11] MEDS ORDERED: CLOPIDOGREL BISULFATE 75 MG TABLET (FP) PO SCH (10:00)
[2019-08-11] MEDS ORDERED: ASPIRIN COATED 81 MG TABLET.EC PO SCH (10:00)
[2019-08-11 10:55] VITALS: BP 111/63; PULSE 83; TEMP 97.4
--- NOTE | 2019-08-11 11:05 | PN ---
Teaching Attending Note Name of Resident: Na Palacio ATTENDING PHYSICIAN STATEMENT I saw and evaluated the patient. I reviewed the resident's note and discussed the case with the resident. I agree with the resident's findings and plan as documented. SUBJECTIVE: Patient seen and examined in the ICU. Awake and alert. Denies CP or SOB. Remains off pressors. No acute events overnight. Intake & Output 08/08/19 08/09/19 08/10/19 08/11/19 23:59 23:59 23:59 23:59 Intake Total 575 704.1 980 226 Output Total 3000 0 0 Balance -2425 704.1 980 226 Weight 187 lb 187 lb 185 lb 3.013 oz Last Vital Signs Temp Pulse Resp BP Pulse Ox 97.4 F L 83 22 H 111/63 97 08/11/19 10:00 08/11/19 10:00 08/11/19 10:00 08/11/19 10:00 08/10/19 19:46 Active Medications Albuterol/Ipratropium (Duoneb -) 1 amp NEB RTID [facility] Last Admin: 08/11/19 07:20 Dose: 1 amp Aspirin (Ecotrin -) 81 mg PO DAILY [facility] Atorvastatin Calcium (Lipitor -) 80 mg PO HS [facility] Last Admin: 08/10/19 22:22 Dose: 80 mg Budesonide/Formoterol Fumarate (Symbicort 80/4.5mcg -) 2 puff IH BID [facility] Last Admin: 08/10/19 22:23 Dose: 2 puff Clopidogrel Bisulfate (Plavix -) 75 mg PO DAILY [facility] Heparin Sodium (Porcine) (Heparin -) 5,000 unit SQ TID [facility] Last Admin: 08/10/19 22:22 Dose: Not Given Sodium Chloride (Normal Saline -) 250 mls @ 3,000 mls/hr IV PRN PRN PRN Reason: Hypotension during Dialysis Stop: 08/11/19 13:48 Aztreonam 0.5 gm/ Dextrose 50 mls @ 100 mls/hr IVPB Q12H [facility]; Protocol Last Admin: 08/11/19 00:42 Dose: 100 mls/hr Metronidazole (Flagyl 500mg Premixed Ivpb -) 500 mg in 100 mls @ 100 mls/hr IVPB Q8H-IV [facility] Last Admin: 12/17/19 03:35 Dose: 100 mls/hr Dextrose (D10w -) 1,000 mls @ 42 mls/hr IV ASDIR [facility] Last Admin: 08/11/19 03:35 Dose: 42 mls/hr Montelukast Sodium (Singulair -) 10 mg PO HS [facility] Last Admin: 08/10/19 22:23 Dose: 10 mg Nystatin (Mycostatin Cream -) 1 applic TP BID [facility] Last Admin: 08/10/19 22:23 Dose: 1 applic Exam: General: awake and alert, NAD HEENT: PERRL CV: S1S2 Pulm: Scattered basilar rhonchi, (-) wheeze Abd: obese, (+) tenderness to palpation RUQ, (+) BS Ext: WWP, (+)1 edema Neuro: Non-focal Laboratory Results - last 24 hr 08/08/19 08/10/19 08/10/19 15:40 12:19 12:43 WBC RBC Hgb Hct MCV MCH MCHC RDW Plt Count MPV Sodium Potassium Chloride Carbon Dioxide Anion Gap BUN Creatinine Est GFR (CKD-EPI)AfAm Est GFR (CKD-EPI)NonAf POC Glucometer 58 148 Random Glucose Calcium Phosphorus Magnesium Total Bilirubin AST ALT Alkaline Phosphatase Total Protein Albumin Hep Bs Antigen Negative 08/10/19 08/10/19 08/10/19 18:10 18:24 18:40 WBC RBC Hgb Hct MCV MCH MCHC RDW Plt Count MPV Sodium Potassium Chloride Carbon Dioxide Anion Gap BUN Creatinine Est GFR (CKD-EPI)AfAm Est GFR (CKD-EPI)NonAf POC Glucometer 55 59 153 Random Glucose Calcium Phosphorus Magnesium Total Bilirubin AST ALT Alkaline Phosphatase Total Protein Albumin Hep Bs Antigen 08/11/19 08/11/19 07:00 07:00 WBC 7.7 RBC 3.68 Hgb 11.3 Hct 35.5 MCV 96.5 H MCH 30.6 MCHC 31.7 L RDW 15.9 H Plt Count 161 MPV 8.5 Sodium 141 Potassium 4.1 Chloride 104 Carbon Dioxide 27 Anion Gap 11 BUN 33.0 H Creatinine 8.7 H* Est GFR (CKD-EPI)AfAm 5.15 Est GFR (CKD-EPI)NonAf 4.44 POC Glucometer Random Glucose 67 L Calcium 8.7 Phosphorus 4.1 Magnesium 2.2 Total Bilirubin 0.7 AST 16 ALT 10 L Alkaline Phosphatase 160 H Total Protein 6.8 Albumin 2.8 L Hep Bs Antigen Assessment/Plan ASSESS: -COPD -HTN -HL -CHF -ESRD ON HD TTS -DM -CVA -AR (in 2014) w/ stents PLAN: -Supp FiO2 for an SpO2 > 92% -Nebs PRN -HD per Renal -ABX per ID -ASA & Plavix -Glycemic control -Normal transfusion thresholds -Cardiac Telemetry monitoring Dr Oneal
[2019-08-11] MEDS: NYSTATIN 100,000 UNIT/GM TOPICAL CREAM 15 GM TUBE TP SCH (11:17)
[2019-08-11] MEDS: BUDESONIDE/FORMETEROL FUMARATE 80/4.5 mcg INHALER IH SCH (11:18)
--- NOTE | 2019-08-11 11:39 | PN ---
Progress Note, Physician History of Present Illness: Pt seen and examined at bedside. She is refusing HD. - Current Medication List Current Medications: Active Medications Albuterol/Ipratropium (Duoneb -) 1 amp NEB RTID [facility] Last Admin: 08/11/19 07:20 Dose: 1 amp Aspirin (Ecotrin -) 81 mg PO DAILY [facility] Last Admin: 08/11/19 11:16 Dose: 81 mg Atorvastatin Calcium (Lipitor -) 80 mg PO HS [facility] Last Admin: 08/10/19 22:22 Dose: 80 mg Budesonide/Formoterol Fumarate (Symbicort 80/4.5mcg -) 2 puff IH BID [facility] Last Admin: 08/11/19 11:18 Dose: 2 puff Clopidogrel Bisulfate (Plavix -) 75 mg PO DAILY [facility] Last Admin: 08/11/19 11:17 Dose: 75 mg Heparin Sodium (Porcine) (Heparin -) 5,000 unit SQ TID [facility] Last Admin: 08/11/19 07:00 Dose: Not Given Sodium Chloride (Normal Saline -) 250 mls @ 3,000 mls/hr IV PRN PRN PRN Reason: Hypotension during Dialysis Stop: 08/11/19 13:48 Aztreonam 0.5 gm/ Dextrose 50 mls @ 100 mls/hr IVPB Q12H [facility]; Protocol Last Admin: 08/11/19 00:42 Dose: 100 mls/hr Metronidazole (Flagyl 500mg Premixed Ivpb -) 500 mg in 100 mls @ 100 mls/hr IVPB Q8H-IV [facility] Last Admin: 08/11/19 11:17 Dose: 100 mls/hr Dextrose (D10w -) 1,000 mls @ 42 mls/hr IV ASDIR [facility] Last Admin: 08/11/19 03:35 Dose: 42 mls/hr Montelukast Sodium (Singulair -) 10 mg PO HS [facility] Last Admin: 08/10/19 22:23 Dose: 10 mg Nystatin (Mycostatin Cream -) 1 applic TP BID [facility] Last Admin: 08/11/19 11:17 Dose: 1 applic - Objective Vital Signs: Vital Signs Temperature 97.4 F L 08/11/19 10:00 Pulse Rate 83 08/11/19 10:00 Respiratory Rate 22 H 08/11/19 10:00 Blood Pressure 111/63 08/11/19 10:00 O2 Sat by Pulse Oximetry (%) 97 08/10/19 19:46 Constitutional: Yes: Calm Eyes: Yes: Conjunctiva Clear HENT: Yes: Atraumatic Neck: Yes: Supple Cardiovascular: Yes: S1, S2 Respiratory: Yes: CTA Bilaterally Gastrointestinal: Yes: Soft Genitourinary: Yes: WNL Musculoskeletal: Yes: WNL Edema: Yes Edema: LLE: Trace, RLE: Trace Neurological: Yes: Oriented Psychiatric: Yes: Agitated Labs: CBC, BMP 08/11/19 07:00 08/11/19 07:00 INR, PTT INR 1.21 (0.83-1.09) H 08/08/19 14:50 Problem List - Problems (1) ESRD (end stage renal disease) on dialysis Code(s): N18.6 - END STAGE RENAL DISEASE; Z99.2 - DEPENDENCE ON RENAL DIALYSIS (2) Fluid overload Code(s): E87.70 - FLUID OVERLOAD, UNSPECIFIED Assessment/Plan Current Medications Generic Name Dose Route Start Last Admin Trade Name Freq PRN Reason Stop Dose Admin Albuterol/Ipratropium 1 amp 08/10/19 20:00 08/11/19 07:20 Duoneb - NEB 1 amp RTID [facility] Administration Aspirin 81 mg 08/11/19 10:00 08/11/19 11:16 Ecotrin - PO 81 mg DAILY [facility] Administration Atorvastatin Calcium 80 mg 08/10/19 22:00 08/10/19 22:22 Lipitor - PO 80 mg HS [facility] Administration Budesonide/Formoterol Fumarate 2 puff 08/10/19 22:00 08/11/19 11:18 Symbicort 80/4.5mcg - IH 2 puff BID [facility] Administration Clopidogrel Bisulfate 75 mg 08/11/19 10:00 08/11/19 11:17 Plavix - PO 75 mg DAILY [facility] Administration Heparin Sodium (Porcine) 5,000 unit 08/10/19 22:00 08/11/19 07:00 Heparin - SQ Not Given TID [facility] Sodium Chloride 250 mls @ 3,000 mls/hr 08/10/19 13:48 Normal Saline - IV 08/11/19 13:48 PRN PRN Hypotension during Dialysis Aztreonam 0.5 gm/ Dextrose 50 mls @ 100 mls/hr 08/10/19 23:27 08/11/19 00:42 IVPB 100 mls/hr Q12H [facility] Administration Protocol Metronidazole 500 mg in 100 mls @ 100 mls/hr 08/10/19 18:00 08/11/19 11:17 Flagyl 500mg Premixed Ivpb - IVPB 100 mls/hr Q8H-IV [facility] Administration Dextrose 1,000 mls @ 42 mls/hr 08/11/19 00:00 08/11/19 03:35 D10w - IV 42 mls/hr ASDIR [facility] Administration Montelukast Sodium 10 mg 08/10/19 22:00 08/10/19 22:23 Singulair - PO 10 mg HS [facility] Administration Nystatin 1 applic 08/10/19 22:00 08/11/19 11:17 Mycostatin Cream - TP 1 applic BID [facility] Administration Impression 1. esrd 2. fluid overload 3. hypotension 4. abd pain 5. copd 6. nicotine use 7. cad 8. cva Plan - pt is refusing HD - explained risk of morbidity and mortality - cont renal diet - potassium stable
--- NOTE | 2019-08-11 12:23 | PN ---
Physical Exam: SUBJECTIVE: Patient seen and examined. In no acute distress sitting up in bed comfortably. States her wishes to leave AMA. refusing hemodialysis. Signed AMA form. Risk of leaving AMA explained to patient. OBJECTIVE: Vital Signs Period Temp Pulse Resp BP Sys/Navarro Pulse Ox Last 24 Hr 97.4 F-98.0 F 77-108 18-22 86-115/47-70 97-97 GENERAL: AOx3 NAD HEENT: PERRLA. EOMI. NCAT LUNGS: B/l basilar coarse breath sounds noted. Some wheezing in upper lobes. HEART: RRR S1S2 heard no murmurs. ABDOMEN: Soft. Mildly tender RUQ. EXTREMITIES: 2+ pulses, warm, well-perfused, no edema. NEUROLOGICAL: nonfocal exam Laboratory Results - last 24 hr 08/08/19 08/10/19 08/10/19 15:40 12:19 12:43 WBC RBC Hgb Hct MCV MCH MCHC RDW Plt Count MPV Sodium Potassium Chloride Carbon Dioxide Anion Gap BUN Creatinine Est GFR (CKD-EPI)AfAm Est GFR (CKD-EPI)NonAf POC Glucometer 58 148 Random Glucose Calcium Phosphorus Magnesium Total Bilirubin AST ALT Alkaline Phosphatase Total Protein Albumin Hep Bs Antigen Negative 08/10/19 08/10/19 08/10/19 18:10 18:24 18:40 WBC RBC Hgb Hct MCV MCH MCHC RDW Plt Count MPV Sodium Potassium Chloride Carbon Dioxide Anion Gap BUN Creatinine Est GFR (CKD-EPI)AfAm Est GFR (CKD-EPI)NonAf POC Glucometer 55 59 153 Random Glucose Calcium Phosphorus Magnesium Total Bilirubin AST ALT Alkaline Phosphatase Total Protein Albumin Hep Bs Antigen 08/11/19 08/11/19 07:00 07:00 WBC 7.7 RBC 3.68 Hgb 11.3 Hct 35.5 MCV 96.5 H MCH 30.6 MCHC 31.7 L RDW 15.9 H Plt Count 161 MPV 8.5 Sodium 141 Potassium 4.1 Chloride 104 Carbon Dioxide 27 Anion Gap 11 BUN 33.0 H Creatinine 8.7 H* Est GFR (CKD-EPI)AfAm 5.15 Est GFR (CKD-EPI)NonAf 4.44 POC Glucometer Random Glucose 67 L Calcium 8.7 Phosphorus 4.1 Magnesium 2.2 Total Bilirubin 0.7 AST 16 ALT 10 L Alkaline Phosphatase 160 H Total Protein 6.8 Albumin 2.8 L Hep Bs Antigen Active Medications Generic Name Dose Route Start Last Admin Trade Name Ade PRN Reason Stop Dose Admin Albuterol/Ipratropium 1 amp 08/10/19 20:00 08/11/19 07:20 Duoneb - NEB 1 amp RTID SHILPA Administration Aspirin 81 mg 08/11/19 10:00 08/11/19 11:16 Ecotrin - PO 81 mg DAILY SHILPA Administration Atorvastatin Calcium 80 mg 08/10/19 22:00 08/10/19 22:22 Lipitor - PO 80 mg HS SHILPA Administration Budesonide/Formoterol Fumarate 2 puff 08/10/19 22:00 08/11/19 11:18 Symbicort 80/4.5mcg - IH 2 puff BID SHILPA Administration Clopidogrel Bisulfate 75 mg 08/11/19 10:00 08/11/19 11:17 Plavix - PO 75 mg DAILY SHILPA Administration Heparin Sodium (Porcine) 5,000 unit 08/10/19 22:00 08/11/19 07:00 Heparin - SQ Not Given TID SHILPA Sodium Chloride 250 mls @ 3,000 mls/hr 08/10/19 13:48 Normal Saline - IV 08/11/19 13:48 PRN PRN Hypotension during Dialysis Aztreonam 0.5 gm/ Dextrose 50 mls @ 100 mls/hr 08/10/19 23:27 08/11/19 12:20 IVPB Not Given Q12H [facility] Protocol Metronidazole 500 mg in 100 mls @ 100 mls/hr 08/10/19 18:00 08/11/19 11:17 Flagyl 500mg Premixed Ivpb - IVPB 100 mls/hr Q8H-IV SHILPA Administration Dextrose 1,000 mls @ 42 mls/hr 08/11/19 00:00 08/11/19 03:35 D10w - IV 42 mls/hr ASDIR SHILPA Administration Montelukast Sodium 10 mg 08/10/19 22:00 08/10/19 22:23 Singulair - PO 10 mg HS SHILPA Administration Nystatin 1 applic 08/10/19 22:00 08/11/19 11:17 Mycostatin Cream - TP 1 applic BID SHILPA Administration ASSESSMENT/PLAN: 63 y.o. F PMH HTN, HLD, CAD s/p 2 stents, CVA (05/2019), COPD, asthma, ESRD on HD () presenting for abdominal & chest pain, diarrhea. #Neuro -AOx3 NAD #CV -Cardio following (Dr. Akhtar) -F/u echo -Records requested from [facility] from recent hospitalization & cardiac history -C/w daily aspirin, plavix; holding home HTN meds -Off pressor support #RESP -Satting well RA -PRN nebs #GI -Abd U/S showed cholelithiasis & sludge w/ GB thickening. No signs of cholecystitis. -C/w aztreonam, flagyl -S/p 2 doses vanc -Denies further episodes diarrhea -Surgery recs appreciated (Dr. Weir) #RENAL -Nephro following (Dr. Galvan) -ESRD on hemodialysis ()-- refused HD today -Trend Cr #ENDO -DM, diet controlled -BGMs -A1c 4.8% # -Voiding freely #FEN -IVF: NS prior to dialysis -Monitor lytes -Renal diet #PROPHYLAXIS -Heparin SQ #DISPO tele Visit type - Emergency Visit Emergency Visit: No - New Patient This patient is new to me today: No - Critical Care Critical Care patient: Yes Total Critical Care Time (in minutes): 36 Critical Care Statement: The care of this patient involved high complexity decision making to prevent further life threatening deterioration of the patient 's condition and/or to evaluate & treat vital organ system(s) failure or risk of failure. ATTENDING PHYSICIAN STATEMENT I saw and evaluated the patient. I reviewed the resident's note and discussed the case with the resident. I agree with the resident's findings and plan as documented. SUBJECTIVE: OBJECTIVE: ASSESSMENT AND PLAN:
--- NOTE | 2019-08-11 12:38 | PN ---
Teaching Attending Note Name of Resident: Michael Loco ATTENDING PHYSICIAN STATEMENT I saw and evaluated the patient. I reviewed the resident's note and discussed the case with the resident. I agree with the resident's findings and plan as documented. SUBJECTIVE: seen earlier today . no abd pain, no OSB , feels back to her base line OBJECTIVE: NAD, awake, alert, cooperative .MMM, no JVD CV: RRR, no MRG Lungs: decreased breath soudns at bases Abd: NT,, NL BS , ND Ext: 1+ edema on LE. ASSESSMENT AND PLAN: 63 y/o lady with h/o ESRD on HD TTS, HTN, HLP, CVA, SD in 2014, s/p stents, CVA , COPd, CHF, DM, and other medical problems who presented with SOB , CP, diarrhea and fevers. she developed hypotension in ER and was found to have fluid overload . 1- Pulmonary edema, due to acute heart failure and ESRD. 2- diarrhea : resolved 3- Abd pain. 4- Shock : resolved 5- H/o HTN 6- h/o CVA, CAD 7- ESRD plan : patient was agreeable to stay and to cont care as previously planned . later resident Dr. Loco was called as patient decided to leave AMA. HE discussed risks with her.
--- NOTE | 2019-08-11 16:52 | DS ---
Physical Exam: SUBJECTIVE: Patient seen and examined OBJECTIVE: Vital Signs Period Temp Pulse Resp BP Sys/Navarro Pulse Ox Last 24 Hr 97.4 F-98.0 F 77-88 18-22 86-115/47-70 97-97 PHYSICAL EXAM GENERAL: Mildly somnolent but arousable, alert, and fully oriented, in no acute distress. Obese EYES: sclera anicteric, conjunctiva clear. No lid lag. EARS, NOSE, THROAT: Moist mucus membranes, edentulous. LUNGS: Rhonchi, basal crackles b/l HEART: S1 and S2 without murmur, rub or gallop. ABDOMEN: Obese, soft, nonTTP of RUQ with deep palpation, nonTTP throughout abd MUSCULOSKELETAL: Tommy to move all extremities spontaneously UPPER EXTREMITIES: healed rashes on hands b/l LOWER EXTREMITIES: b/l peripheral nonpitting edema, thickened dark skin. LUE with AVF NEUROLOGICAL: Edentulous speech difficult to comprehend. Ambulating without assistive device LABS Laboratory Results - last 24 hr 08/10/19 08/10/19 08/10/19 18:10 18:24 18:40 WBC RBC Hgb Hct MCV MCH MCHC RDW Plt Count MPV Sodium Potassium Chloride Carbon Dioxide Anion Gap BUN Creatinine Est GFR (CKD-EPI)AfAm Est GFR (CKD-EPI)NonAf POC Glucometer 55 59 153 Random Glucose Calcium Phosphorus Magnesium Total Bilirubin AST ALT Alkaline Phosphatase Total Protein Albumin 08/11/19 08/11/19 07:00 07:00 WBC 7.7 RBC 3.68 Hgb 11.3 Hct 35.5 MCV 96.5 H MCH 30.6 MCHC 31.7 L RDW 15.9 H Plt Count 161 MPV 8.5 Sodium 141 Potassium 4.1 Chloride 104 Carbon Dioxide 27 Anion Gap 11 BUN 33.0 H Creatinine 8.7 H* Est GFR (CKD-EPI)AfAm 5.15 Est GFR (CKD-EPI)NonAf 4.44 POC Glucometer Random Glucose 67 L Calcium 8.7 Phosphorus 4.1 Magnesium 2.2 Total Bilirubin 0.7 AST 16 ALT 10 L Alkaline Phosphatase 160 H Total Protein 6.8 Albumin 2.8 L HOSPITAL COURSE: Date of Admission:08/08/19 Date of Discharge: 08/11/19 63F with PMHx of HTN, HLD, CAD s/p 2 stents (2014), CVA (05/2019), COPD, asthma , nicotine use, ESRD on HD (T//), CHF, DM (diet controlled) presented with complaint of chest pain, abdominal pain, diarrhea. In ED, became hypotensive to 70s/40s prompting pressors(NE) via RIJ(failed) then Left femoral line. Admitted for presumptive septic shock 2/ possible c diff. Neg troponin x2. BNP ~29,000 with hypercapnic respiratory failure. Lactic acid 2.4 initially, improved to 1.9. CT Abd showing biliary sludge and calcifications of pancreatic body-tail( rec outpt MRI w/ contrast). Weaned off NE after 1 day. HbA1c 4.8. Complaining of diffuse abd pain w/ TTP of RUQ. Surgery consult for possible biliary issues. Surgery([facility]) thought neg for biliary issues. Abd pain resolved on hospital day 3. HIDA was cancelled. Abx stopped as per ID(Layla) suggestion. Patient decided to AMA prior to HD on 08/11/19, stating that she had to "look at an apartment" so she could get out of her half-way. Has a standing HD appt at [facility]. Risks were explained and AMA paperwork filled. No new medications prescribed. Minutes to complete discharge: 20 Discharge Summary Problems reviewed: Yes Reason For Visit: CHOLECYSTITIS,HYPOTENSION,HYPERVOLEMIA Condition: Guarded - Instructions Diet, Activity, Other Instructions: PCP: --MRI abdomen with contrast to evaluate the pancreas Referrals: Madison Fofana [Primary Care Provider] - Disposition: AGAINST MEDICAL ADVICE - Home Medications Comprehensive Discharge Medication List: Ambulatory Orders Aspirin [Aspirin EC] 81 mg PO DAILY 08/08/19 Atorvastatin Ca [Lipitor] 80 mg PO HS 08/08/19 Budesonide/Formeterol Fumarate [SYMBICORT 80/4.5mcg -] 2 inh PO BID 08/08/19 Clopidogrel Bisulfate [Plavix -] 75 mg PO DAILY 08/08/19 Clotrimazole 30 ml TP DAILY 08/08/19 Cyanocobalamin [Vitamin B12 -] 100 mcg PO DAILY 08/08/19 Folic Acid 1 mg PO DAILY 08/08/19 Gabapentin 100 mg PO BID 08/08/19 Isosorbide Dinitrate [Isordil] 20 mg PO TID 08/08/19 Lisinopril 10 mg PO DAILY 08/08/19 Metoprolol Succinate 12.5 mg PO DAILY 08/08/19 Montelukast Sodium [Singulair] 10 mg PO DAILY 08/08/19 Mupirocin 1 gm TP BID 08/08/19 Nitroglycerin 0.4 mg SL DAILY 08/08/19 Sennosides [Senna] 17.2 mg PO HS 08/08/19 Sevelamer HCl 800 mg PO TID 08/08/19 This patient is new to me today: No Emergency Visit: No Critical Care patient: No - Discharge Referral Referred to [facility] Med P.C.: No ATTENDING PHYSICIAN STATEMENT I saw and evaluated the patient. I reviewed the resident's note and discussed the case with the resident. I agree with the resident's findings and plan as documented. SUBJECTIVE: OBJECTIVE: ASSESSMENT AND PLAN:
--- NOTE | 2019-08-12 07:13 | ECHO ---
Version: 1 Name: TYLER WATERMAN Exam: Adult Echocardiogram Study Date: 08/11/2019, 10:32 AM Age: 63 Years MMode/2D Measurements & Calculations IVSd: 0.96 cm LVIDs: 3.8 cm LVIDd: 4.8 cm LVPWd: 0.88 cm LAV (MOD-bp): 72.7 ml LVOT diam: 1.99 cm Ao root diam: 2.5 cm LA dimension: 4.0 cm Doppler Measurements & Calculations MV E max matthias: 140.0 cm/sec Med E/e': 37.8 MV A max matthias: 78.1 cm/sec Med Peak E' Matthias: 3.7 cm/sec MV E/A: 1.79 Lat E/e': 12.5 Lat Peak E' Matthias: 11.2 cm/sec MR max P.1 mmHg Ao max P.1 mmHg ARMIN(I,D): 0.49 cm Ao mean P.6 mmHg LV V1 mean: 52.5 cm/sec Ao V2 max: 370.2 cm/sec LV V1 mean P.30 mmHg AI P1/2t: 370.5 msec TR max matthias: 270.1 cm/sec TR max P.4 mmHg Procedure A complete two-dimensional transthoracic echocardiogram was performed (2D, M-mode, Doppler and color flow Doppler). Left Ventricle The left ventricular size, thickness and function are normal. Ejection Fraction = 55%. E/A reversal consistent with but not diagnostic of poor LV compliance. The left ventricular wall motion is normal . Right Ventricle The right ventricle is normal in size and function. Atria Normal left and right atrial size and function. Mitral Valve There is moderate to severe mitral annular calcification. There is trace to mild mitral regurgitatio n. Tricuspid Valve The tricuspid valve is normal in structure and function. There is moderate tricuspid regurgitation. Right ventricular systolic pressure is elevated at 42 mmhg. Assuming the RA pressure is 5 mmHg. Aortic Valve There is moderate to severe aortic valve thickening. Trace to mild aortic regurgitation. Great Vessels The aortic root is normal size. Pericardium/Pleura There is no pericardial effusion. There is no pleural effusion. Summary Statements The left ventricular size, thickness and function are normal Ejection Fraction = 55%. The right ventricle is normal in size and function. There is moderate to severe mitral annular calcification. There is trace to mild mitral regurgitation. There is moderate tricuspid regurgitation. Right ventricular systolic pressure is elevated at 42 mmhg. Assuming the RA pressure is 5 mmHg There is moderate to severe aortic valve thickening. Trace to mild aortic regurgitation. MD Kang Britton 08/11/2019, 12:44 PM Ordering Physician: Jennifer Beltrán I Performed By: Maritza Mcconnell
== END 2019-08-11 12:15 | disposition left against medical advice (07) ==
LOC: JER 05:33 → JERBED 08:57 → JICU 12:31
PROVIDERS: ADMIT Internal Medicine; ATTEND Internal Medicine
DX: K81.9 Cholecystitis, unspecified (principal); Z99.2 Dependence on renal dialysis; J44.1 Chronic obstructive pulmonary disease with (acute) exacerbation; E78.5 Hyperlipidemia, unspecified; I25.10 Atherosclerotic heart disease of native coronary artery without angina pectoris; J45.909 Unspecified asthma, uncomplicated; F17.210 Nicotine dependence, cigarettes, uncomplicated; I13.2 Hypertensive heart and chronic kidney disease with heart failure and with stage 5 chronic kidney disease, or end stage renal disease; E11.22 Type 2 diabetes mellitus with diabetic chronic kidney disease; N18.6 End stage renal disease; Z98.61 Coronary angioplasty status; I95.9 Hypotension, unspecified; R19.7 Diarrhea, unspecified; E87.70 Fluid overload, unspecified; J96.02 Acute respiratory failure with hypercapnia; R07.89 Other chest pain; I50.33 Acute on chronic diastolic (congestive) heart failure; G47.33 Obstructive sleep apnea (adult) (pediatric)
CPT/HCPCS: 36415; 71045-TC-FY; 74176-TC; 76705-TC; 76937; 80048; 80053; 80061; 82803; 82962; 83036; 83605; 83690; 83721; 83735; 83880; 84100; 84443; 84484; 85025; 85027; 85610; 85730; 86803; 87040; 87340; 87804; 93005; 93010; 93306-TC; 93308; 94640; 99285-25; J0131; J1644